=== PATIENT | female | born 1970 | race Two or more races ===

== ENCOUNTER 2024-10-26 09:00 | Outpatient (RCR) | payer OTHER, MEDICAID, SELFPAY ==
[2024-10-12 09:33] VITALS: BP 131/68; PULSE 78; RESP 16; TEMP 36.9; O2SAT 96; BMI 25.2
[2024-10-12] MEDS: FERRIC SOD GLUC INJ 125 MG in SODIUM CHLORIDE 0.9% 100 ML 110 MG IV (09:56)
[2024-10-12 11:06] VITALS: BP 126/62; PULSE 82; RESP 15; TEMP 36.6; O2SAT 97
[2024-10-19 08:56] VITALS: TEMP 36.2; BMI 25.5
[2024-10-19 08:57] VITALS: BP 127/58; PULSE 69; RESP 18; TEMP 36.2; O2SAT 96
[2024-10-19] MEDS: FERRIC SOD GLUC INJ 125 MG in SODIUM CHLORIDE 0.9% 100 ML 110 MG IV (09:07)
[2024-10-19 10:10] VITALS: BP 104/61; PULSE 82; RESP 18; TEMP 36.5; O2SAT 96
[2024-10-26 09:00] VITALS: BP 122/67; PULSE 80; RESP 18; TEMP 36.3; O2SAT 97; BMI 25.2
[2024-10-26] MEDS: FERRIC SOD GLUC INJ 125 MG in SODIUM CHLORIDE 0.9% 100 ML 110 MG IV (09:28)
--- NOTE | 2024-10-26 09:48 | CHAP ---
Visited with patient giving encouragement and prayer.
[2024-10-26 10:38] VITALS: BP 119/74; PULSE 85; RESP 17; TEMP 36.6; O2SAT 100
== END 2024-10-29 23:59 | disposition home or self-care (01) ==
LOC: SFLEX 09:00
PROVIDERS: PCP Internal Medicine; Referring Provider Internal Medicine; Visit Provider Internal Medicine
PROC: (CPT 96365; principal; 2024-10-12 09:00)
DX: D50.9 Iron deficiency anemia, unspecified (principal)
CPT/HCPCS: 96365; 96366; J2916; J7050

== ENCOUNTER → 2024-11-02 | Outpatient (CLI) | payer OTHER, MEDICAID, SELFPAY ==
[2024-11-02] MEDS: FERRIC SOD GLUC INJ 125 MG in SODIUM CHLORIDE 0.9% 100 ML 110 MG IV (09:54)
[2024-11-02 10:05] VITALS: BP 128/71; PULSE 90; RESP 14; TEMP 36.1; O2SAT 95; BMI 25.9
== END | disposition home or self-care (01) ==
PROVIDERS: PCP Internal Medicine; Referring Provider Internal Medicine; Visit Provider Internal Medicine
PROC: (CPT 96365; principal; 2024-11-02 09:00)
DX: D50.9 Iron deficiency anemia, unspecified (principal)
CPT/HCPCS: 96365; J2916; J7050

== ENCOUNTER → 2024-11-14 | Outpatient (CLI) | payer OTHER, MEDICAID, SELFPAY ==
--- NOTE | 2024-11-14 10:30 | XR_ITS ---
Examination: Screening digital mammography, bilateral Computer aided detection 3-D breast Tomosynthesis, bilateral Date and time of exam: November 14, 2024 at 1037 hours Compared to mammograms dating to November 07, 2011 Indication: Screening Technique: Nonmagnified MLO, CC views of the breasts to been obtained, reconstructed from 3-D Tomosynthesis images. R2 computer aided detection program utilized for evaluation of suspicious masses and/or abnormal calcifications. 3-D Tomosynthesis images obtained. Findings: The breasts are heterogeneously dense, which may obscure small masses Benign calcifications. No interval suspicious masses Impression: BI-RADS category II: Benign Findings. Recommend 1 year follow-up mammogram.
--- NOTE | 2024-11-14 10:35 | XR_ITS ---
Examination: Bone densitometry Date and time of exam:November 14, 2024 1050 hours INDICATIONS: Menopause age 44 calcium 2 years, personal history osteopenia Technique: Lumbar spine and hip total bone mineralization values of an calculated. Peak reference and age match control results have been displayed. Findings: Lumbar spine total bone mineralization is0.929 gm/cm2. This is 1.1 standard deviations below peak reference. This is 0.1 standard deviations above age-matched controls. Hip total bone mineralization is 0.766 gm/cm2 This is 1.5 standard deviations below peak reference. This is 0.7 standard deviations below age-matched controls Impression: There is osteopenia based on lumbar spine measurements. There is osteoporosis based on hip measurements Lumbar mineralization is increased 1.9% compared with April 22, 2022 Hip mineralization is decreased 4.2% compared with April 22, 2022
== END | disposition home or self-care (01) ==
PROVIDERS: PCP Internal Medicine; Referring Provider Internal Medicine; Visit Provider Internal Medicine
DX: Z12.31 Encounter for screening mammogram for malignant neoplasm of breast (principal); R92.323 Mammographic fibroglandular density, bilateral breasts; R92.1 Mammographic calcification found on diagnostic imaging of breast; M85.88 Other specified disorders of bone density and structure, other site; M81.0 Age-related osteoporosis without current pathological fracture
CPT/HCPCS: 77063; 77067; 77080

== ENCOUNTER → 2024-12-13 | Outpatient (CLI) | payer MEDICARE, MEDICAID, SELFPAY ==
[2024-12-13 13:42] LABS: Basophils # (Auto) 0.1 Thou/mm3 (0.0-0.2); Basophils % (Auto) 1 % (0-2.5); Eosinophils # (Auto) 0.1 Thou/mm3 (0.0-0.5); Eosinophils % (Auto) 1 % (0-10); Hematocrit 38.7 % (36.0-46.0); Hemoglobin 12.6 g/dL (12.0-16.0); Immature Granulocytes % (Auto) 0 % (0-0); Immature Granulocytes Auto 0.03 Thou/mm3 (0.00-0.00); Lymphocytes # (Auto) 2.5 Thou/mm3 (1.0-4.8); Lymphocytes % (Auto) 26 % (10-50); Mean Corpuscular HGB Conc 32.6 g/dl (31.0-37.0); Mean Corpuscular Hemoglobin 27.6 pg (25.0-35.0); Mean Corpuscular Volume 85 fL (80-100); Monocytes # (Auto) 0.7 Thou/mm3 (0.0-0.8); Monocytes % (Auto) 7 % (0-12); Neutrophils # (Auto) 6.4 Thou/mm3 (1.8-7.7); Neutrophils % (Auto) 65 % (37-80); Nucleated Red Blood Cell % 0 /100 WBC (0); Platelet Count 367 Thou/mm3 (140-440); RDW Standard Deviation 48.5 fL (36.4-46.3); Red Blood Count 4.56 Miln/mm3 (4.00-5.20); White Blood Count 9.7 Thou/mm3 (3.6-11.0)
[2024-12-13 13:44] LABS: Collection Type, Urine Clean Catch
[2024-12-13 14:02] LABS: Ferritin 42 ng/mL (7.3-270.7)
[2024-12-13 14:03] LABS: Alanine Aminotransferase 11 U/L (10-49); Albumin, Serum 4.6 gm/dL (3.5-5.0); Albumin/Globulin Ratio 1.2 (1.2-2.2); Alkaline Phosphatase 96 U/L (46-116); Anion Gap 8 (7-16); Aspartate Amino Transferase 13 U/L (0-34); BUN/Creatinine Ratio 30 Ratio (12-20); Bilirubin,Total 0.2 mg/dL (0.3-1.2); Blood Urea Nitrogen 24 mg/dL (9-23); Calcium 9.6 mg/dL (8.3-10.6); Calcium (Corrected) 9.6 mg/dL (8.5-10.1); Carbon Dioxide 27.6 mMol/L (20.0-31.0); Cardiac Risk Estimate 3.7 RATIO (3.7-5.6); Chloride 104 mMol/L (98-107); Cholesterol 156 mg/dL (132-200); Creatinine (Component) 0.8 mg/dL (0.6-1.3); Globulin 3.7 gm/dL (2.3-3.5); Glucose 86 mg/dL (74-106); HDL Cholesterol 42 mg/dL (40-60); LDL Cholesterol,Calculated 89 mg/dL (0-130); Magnesium 1.5 mg/dL (1.6-2.6); Osmolality,Calculated 282 (275-295); Phosphorous 3.1 mg/dL (2.4-5.1); Potassium 4.4 mMol/L (3.4-5.1); Sodium 140 mMol/L (136-145); Total Protein 8.3 gm/dL (5.7-8.2); Triglycerides 127 mg/dL (30-150); eGFR > 60 See Note
[2024-12-13 16:42] LABS: Bilirubin,Urine Negative (Negative); Blood,Urine Negative (Negative); Clarity,Urine Clear (Clear/Hazy); Color,Urine Lt-Yellow (Lt Yel-Yel); Glucose, Urine Negative (Negative); Ketones,Urine Negative (Negative); Leukocyte Esterase,Urine Negative (Negative); Nitrite,Urine Negative (Negative); PH,Urine 6.5 (5.0-7.0); Protein,Urine 1+ (Neg - Trace); RBC,Urine 1 /hpf (0-3); Specific Gravity,Urine 1.023 (1.001-1.035); Squamous Epithelial Cell,Urine < 1 /hpf (0-5); Urobilinogen,Urine Negative mg/dL (0.0-1.0); WBC,Urine 1 /hpf (0-5)
== END | disposition home or self-care (01) ==
PROVIDERS: PCP Internal Medicine; Referring Provider Internal Medicine; Visit Provider Internal Medicine
DX: I10 Essential (primary) hypertension (principal); E78.5 Hyperlipidemia, unspecified; E11.9 Type 2 diabetes mellitus without complications; D50.9 Iron deficiency anemia, unspecified
CPT/HCPCS: 36415; 80053; 80061; 81001; 82728; 83735; 84100; 84443; 85025

== ENCOUNTER → 2025-02-21 | Outpatient (CLI) | payer MEDICARE, MEDICAID, SELFPAY ==
[2025-02-21 12:34] LABS: Basophils # (Auto) 0.1 Thou/mm3 (0.0-0.2); Basophils % (Auto) 1 % (0-2.5); Eosinophils # (Auto) 0.1 Thou/mm3 (0.0-0.5); Eosinophils % (Auto) 1 % (0-10); Hematocrit 34.6 % (36.0-46.0); Hemoglobin 11.5 g/dL (12.0-16.0); Immature Granulocytes % (Auto) 0 % (0-0); Immature Granulocytes Auto 0.03 Thou/mm3 (0.00-0.00); Lymphocytes # (Auto) 1.7 Thou/mm3 (1.0-4.8); Lymphocytes % (Auto) 18 % (10-50); Mean Corpuscular HGB Conc 33.2 g/dl (31.0-37.0); Mean Corpuscular Hemoglobin 28.3 pg (25.0-35.0); Mean Corpuscular Volume 85 fL (80-100); Monocytes # (Auto) 0.8 Thou/mm3 (0.0-0.8); Monocytes % (Auto) 9 % (0-12); Neutrophils # (Auto) 6.8 Thou/mm3 (1.8-7.7); Neutrophils % (Auto) 71 % (37-80); Nucleated Red Blood Cell % 0 /100 WBC (0); Platelet Count 458 Thou/mm3 (140-440); RDW Standard Deviation 46.7 fL (36.4-46.3); Red Blood Count 4.06 Miln/mm3 (4.00-5.20); White Blood Count 9.5 Thou/mm3 (3.6-11.0)
[2025-02-21 13:08] LABS: Sed Rate (ESR) 52 mm/hr (0-30)
[2025-02-21 14:11] LABS: Alanine Aminotransferase 45 U/L (10-49); Albumin, Serum 4.3 gm/dL (3.5-5.0); Albumin/Globulin Ratio 1.3 (1.2-2.2); Alkaline Phosphatase 126 U/L (46-116); Anion Gap 9 (7-16); Aspartate Amino Transferase 67 U/L (0-34); BUN/Creatinine Ratio 20 Ratio (12-20); Bilirubin,Total 0.4 mg/dL (0.3-1.2); Blood Urea Nitrogen 18 mg/dL (9-23); Calcium 9.9 mg/dL (8.3-10.6); Calcium (Corrected) 9.9 mg/dL (8.5-10.1); Carbon Dioxide 26.5 mMol/L (20.0-31.0); Chloride 106 mMol/L (98-107); Creatinine (Component) 0.9 mg/dL (0.6-1.3); Globulin 3.4 gm/dL (2.3-3.5); Glucose 102 mg/dL (74-106); Osmolality,Calculated 283 (275-295); Potassium 4.5 mMol/L (3.4-5.1); Sodium 141 mMol/L (136-145); Total Protein 7.7 gm/dL (5.7-8.2); eGFR > 60 See Note
[2025-02-21 16:29] LABS: C-Reactive Protein 2.7 mg/dL (0.0-0.9)
[2025-02-27 07:04] LABS: Complement Component C3* 140 mg/dL (83-193); Complement Component C4c* 25 mg/dL (15-57)
== END | disposition home or self-care (01) ==
LOC: COPL 11:24
PROVIDERS: PCP Internal Medicine
DX: D72.829 Elevated white blood cell count, unspecified (principal); D75.839 Thrombocytosis, unspecified; E55.9 Vitamin D deficiency, unspecified; I10 Essential (primary) hypertension; I26.93 Single subsegmental thrombotic pulmonary embolism without acute cor pulmonale; J84.09 Other alveolar and parieto-alveolar conditions; K21.9 Gastro-esophageal reflux disease without esophagitis; M13.0 Polyarthritis, unspecified; M34.1 CR(E)ST syndrome; R59.0 Localized enlarged lymph nodes; R91.1 Solitary pulmonary nodule; Z23 Encounter for immunization; Z79.52 Long term (current) use of systemic steroids
CPT/HCPCS: 36415; 80053; 85025; 85652; 86140; 86160

== ENCOUNTER → 2025-03-27 | Outpatient (CLI) | payer MEDICARE, MEDICAID, SELFPAY ==
[2025-03-27 14:41] LABS: Albumin, Serum 4.5 gm/dL (3.5-5.0); Anion Gap 9 (7-16); BUN/Creatinine Ratio 14 Ratio (12-20); Blood Urea Nitrogen 13 mg/dL (9-23); Calcium 8.9 mg/dL (8.3-10.6); Calcium (Corrected) 8.9 mg/dL (8.5-10.1); Carbon Dioxide 26.4 mMol/L (20.0-31.0); Chloride 103 mMol/L (98-107); Creatinine (Component) 0.9 mg/dL (0.6-1.3); Glucose 120 mg/dL (74-106); Magnesium 1.1 mg/dL (1.6-2.6); Osmolality,Calculated 276 (275-295); Phosphorous 2.4 mg/dL (2.4-5.1); Potassium 4.2 mMol/L (3.4-5.1); Sodium 138 mMol/L (136-145); eGFR > 60 See Note
== END | disposition home or self-care (01) ==
LOC: COPL 13:06
PROVIDERS: PCP Internal Medicine; Referring Provider Internal Medicine; Visit Provider Internal Medicine
DX: I10 Essential (primary) hypertension (principal)
CPT/HCPCS: 36415; 80069; 83735

== ENCOUNTER → 2025-05-12 | Outpatient (CLI) | payer MEDICARE, MEDICAID, SELFPAY ==
[2025-05-12 13:46] LABS: Collection Type, Urine Clean Catch
[2025-05-12 14:13] LABS: Basophils # (Auto) 0.1 Thou/mm3 (0.0-0.2); Basophils % (Auto) 1 % (0-2.5); Eosinophils # (Auto) 0.3 Thou/mm3 (0.0-0.5); Eosinophils % (Auto) 3 % (0-10); Hematocrit 37.1 % (36.0-46.0); Hemoglobin 12.1 g/dL (12.0-16.0); Immature Granulocytes % (Auto) 0 % (0-0); Immature Granulocytes Auto 0.02 Thou/mm3 (0.00-0.00); Lymphocytes # (Auto) 1.7 Thou/mm3 (1.0-4.8); Lymphocytes % (Auto) 21 % (10-50); Mean Corpuscular HGB Conc 32.6 g/dl (31.0-37.0); Mean Corpuscular Hemoglobin 27.6 pg (25.0-35.0); Mean Corpuscular Volume 85 fL (80-100); Monocytes # (Auto) 0.6 Thou/mm3 (0.0-0.8); Monocytes % (Auto) 8 % (0-12); Neutrophils # (Auto) 5.6 Thou/mm3 (1.8-7.7); Neutrophils % (Auto) 67 % (37-80); Nucleated Red Blood Cell % 0 /100 WBC (0); Platelet Count 454 Thou/mm3 (140-440); RDW Standard Deviation 43.4 fL (36.4-46.3); Red Blood Count 4.38 Miln/mm3 (4.00-5.20); White Blood Count 8.3 Thou/mm3 (3.6-11.0)
[2025-05-12 14:18] LABS: Bilirubin,Urine Negative (Negative); Blood,Urine Negative (Negative); Clarity,Urine Clear (Clear/Hazy); Color,Urine Lt-Yellow (Lt Yel-Yel); Glucose, Urine Negative (Negative); Hyaline Casts,Urine < 1 /hpf (0-1); Ketones,Urine Negative (Negative); Leukocyte Esterase,Urine Negative (Negative); Nitrite,Urine Negative (Negative); PH,Urine 6.5 (5.0-7.0); Protein,Urine Trace (Neg - Trace); RBC,Urine 3 /hpf (0-3); Specific Gravity,Urine 1.023 (1.001-1.035); Squamous Epithelial Cell,Urine 1 /hpf (0-5); Urobilinogen,Urine Negative mg/dL (0.0-1.0); WBC,Urine 1 /hpf (0-5)
[2025-05-12 14:44] LABS: Alanine Aminotransferase < 7 U/L (10-49); Albumin, Serum 4.3 gm/dL (3.5-5.0); Albumin/Globulin Ratio 1.3 (1.2-2.2); Alkaline Phosphatase 102 U/L (46-116); Anion Gap 8 (7-16); Aspartate Amino Transferase 16 U/L (0-34); BUN/Creatinine Ratio 19 Ratio (12-20); Bilirubin,Total 0.3 mg/dL (0.3-1.2); Blood Urea Nitrogen 15 mg/dL (9-23); C-Reactive Protein < 0.5 mg/dL (0.0-0.9); Calcium 9.2 mg/dL (8.3-10.6); Calcium (Corrected) 9.2 mg/dL (8.5-10.1); Carbon Dioxide 30.6 mMol/L (20.0-31.0); Chloride 104 mMol/L (98-107); Creatine Kinase 44 U/L (34-171); Creatinine (Component) 0.8 mg/dL (0.6-1.3); Globulin 3.4 gm/dL (2.3-3.5); Glucose 89 mg/dL (74-106); Osmolality,Calculated 284 (275-295); Potassium 4.6 mMol/L (3.4-5.1); Sodium 143 mMol/L (136-145); Total Protein 7.7 gm/dL (5.7-8.2); eGFR > 60 See Note
[2025-05-12 15:35] LABS: Sed Rate (ESR) 14 mm/hr (0-30)
[2025-05-17 13:49] LABS: Sm Antibody <1.0 NEG AI (<1.0 NEGATIVE)
[2025-05-18 06:40] LABS: Aldolase* 3.8 U/L (< OR = 8.1); Sm/RNP Antibody >8.0 POS AI (<1.0 NEGATIVE)
== END | disposition home or self-care (01) ==
PROVIDERS: PCP Internal Medicine
DX: D72.829 Elevated white blood cell count, unspecified (principal); D75.839 Thrombocytosis, unspecified; E55.9 Vitamin D deficiency, unspecified; I10 Essential (primary) hypertension; I26.93 Single subsegmental thrombotic pulmonary embolism without acute cor pulmonale; J84.09 Other alveolar and parieto-alveolar conditions; K21.9 Gastro-esophageal reflux disease without esophagitis; M13.0 Polyarthritis, unspecified; M34.1 CR(E)ST syndrome; R59.0 Localized enlarged lymph nodes; R91.1 Solitary pulmonary nodule; Z23 Encounter for immunization; Z79.52 Long term (current) use of systemic steroids
CPT/HCPCS: 36415; 80053; 81001; 82085; 82550; 85025; 85652; 86140; 86235; 87086

== ENCOUNTER → 2025-07-06 | Outpatient (CLI) | payer MEDICARE, MEDICAID, SELFPAY ==
[2025-07-06 16:04] LABS: Basophils # (Auto) 0.1 Thou/mm3 (0.0-0.2); Basophils % (Auto) 1 % (0-2.5); Eosinophils # (Auto) 0.3 Thou/mm3 (0.0-0.5); Eosinophils % (Auto) 3 % (0-10); Hematocrit 36.3 % (36.0-46.0); Hemoglobin 11.2 g/dL (12.0-16.0); Immature Granulocytes Auto 0.03 Thou/mm3 (0.00-0.00); Lymphocytes # (Auto) 1.8 Thou/mm3 (1.0-4.8); Lymphocytes % (Auto) 22 % (10-50); Mean Corpuscular HGB Conc 30.9 g/dl (31.0-37.0); Mean Corpuscular Hemoglobin 25.7 pg (25.0-35.0); Mean Corpuscular Volume 83 fL (80-100); Monocytes # (Auto) 0.6 Thou/mm3 (0.0-0.8); Monocytes % (Auto) 8 % (0-12); Neutrophils # (Auto) 5.4 Thou/mm3 (1.8-7.7); Neutrophils % (Auto) 66 % (37-80); Nucleated Red Blood Cell # 0.00 Thou/mm3 (0.00-0.00); Nucleated Red Blood Cell % 0 /100 WBC (0); Platelet Count 465 Thou/mm3 (140-440); RDW Standard Deviation 43.8 fL (36.4-46.3); Red Blood Count 4.35 Miln/mm3 (4.00-5.20); White Blood Count 8.2 Thou/mm3 (3.6-11.0)
[2025-07-06 16:19] LABS: B-Type Natriuretic Peptide 58 pg/mL (0-100)
[2025-07-06 16:32] LABS: Alanine Aminotransferase < 7 U/L (10-49); Albumin, Serum 4.2 gm/dL (3.5-5.0); Albumin/Globulin Ratio 1.2 (1.2-2.2); Alkaline Phosphatase 92 U/L (46-116); Anion Gap 10 (7-16); Aspartate Amino Transferase 13 U/L (0-34); BUN/Creatinine Ratio 18 Ratio (12-20); Bilirubin,Total 0.3 mg/dL (0.3-1.2); Blood Urea Nitrogen 21 mg/dL (9-23); Calcium 8.9 mg/dL (8.3-10.6); Calcium (Corrected) 8.9 mg/dL (8.5-10.1); Carbon Dioxide 24.5 mMol/L (20.0-31.0); Chloride 108 mMol/L (98-107); Creatinine (Component) 1.2 mg/dL (0.6-1.3); Globulin 3.4 gm/dL (2.3-3.5); Glucose 112 mg/dL (74-106); Osmolality,Calculated 287 (275-295); Potassium 4.1 mMol/L (3.4-5.1); Sodium 142 mMol/L (136-145); Total Protein 7.6 gm/dL (5.7-8.2); eGFR 53 See Note
== END | disposition home or self-care (01) ==
LOC: COPL 14:09
PROVIDERS: PCP Internal Medicine; Referring Provider Internal Medicine; Visit Provider Internal Medicine
DX: R06.02 Shortness of breath (principal); J84.9 Interstitial pulmonary disease, unspecified; I27.20 Pulmonary hypertension, unspecified
CPT/HCPCS: 36415; 80053; 83880; 85025

== ENCOUNTER → 2025-07-11 | Outpatient (CLI) | payer MEDICARE, MEDICAID, SELFPAY ==
[2025-07-11 15:26] LABS: Collection Type, Urine Clean Catch
[2025-07-11 16:38] LABS: Basophils # (Auto) 0.1 Thou/mm3 (0.0-0.2); Basophils % (Auto) 1 % (0-2.5); Eosinophils # (Auto) 0.3 Thou/mm3 (0.0-0.5); Eosinophils % (Auto) 2 % (0-10); Hematocrit 37.3 % (36.0-46.0); Hemoglobin 11.6 g/dL (12.0-16.0); Immature Granulocytes Auto 0.03 Thou/mm3 (0.00-0.00); Lymphocytes # (Auto) 1.6 Thou/mm3 (1.0-4.8); Lymphocytes % (Auto) 14 % (10-50); Mean Corpuscular HGB Conc 31.1 g/dl (31.0-37.0); Mean Corpuscular Hemoglobin 26.1 pg (25.0-35.0); Mean Corpuscular Volume 84 fL (80-100); Monocytes # (Auto) 1.0 Thou/mm3 (0.0-0.8); Monocytes % (Auto) 9 % (0-12); Neutrophils # (Auto) 8.6 Thou/mm3 (1.8-7.7); Neutrophils % (Auto) 74 % (37-80); Nucleated Red Blood Cell # 0.00 Thou/mm3 (0.00-0.00); Nucleated Red Blood Cell % 0 /100 WBC (0); Platelet Count 352 Thou/mm3 (140-440); RDW Standard Deviation 44.5 fL (36.4-46.3); Red Blood Count 4.45 Miln/mm3 (4.00-5.20); White Blood Count 11.5 Thou/mm3 (3.6-11.0)
[2025-07-11 16:52] LABS: Bilirubin,Urine Negative (Negative); Blood,Urine Trace (Negative); Clarity,Urine Clear (Clear/Hazy); Color,Urine Yellow (Lt Yel-Yel); Glucose, Urine Negative (Negative); Hyaline Casts,Urine < 1 /hpf (0-1); Ketones,Urine Negative (Negative); Leukocyte Esterase,Urine Negative (Negative); Nitrite,Urine Negative (Negative); PH,Urine 6.0 (5.0-7.0); Protein,Urine 1+ (Neg - Trace); RBC,Urine 8 /hpf (0-3); Specific Gravity,Urine 1.029 (1.001-1.035); Squamous Epithelial Cell,Urine 1 /hpf (0-5); Urobilinogen,Urine Negative mg/dL (0.0-1.0); WBC,Urine 4 /hpf (0-5)
[2025-07-11 17:45] LABS: Sed Rate (ESR) 65 mm/hr (0-30)
[2025-07-11 17:55] LABS: Alanine Aminotransferase 8 U/L (10-49); Albumin, Serum 4.2 gm/dL (3.5-5.0); Albumin/Globulin Ratio 1.2 (1.2-2.2); Alkaline Phosphatase 101 U/L (46-116); Anion Gap 12 (7-16); Aspartate Amino Transferase 23 U/L (0-34); BUN/Creatinine Ratio 21 Ratio (12-20); Bilirubin,Total 0.3 mg/dL (0.3-1.2); Blood Urea Nitrogen 21 mg/dL (9-23); C-Reactive Protein 1.0 mg/dL (0.0-0.9); Calcium 9.1 mg/dL (8.3-10.6); Calcium (Corrected) 9.1 mg/dL (8.5-10.1); Carbon Dioxide 21.8 mMol/L (20.0-31.0); Chloride 107 mMol/L (98-107); Creatinine (Component) 1.0 mg/dL (0.6-1.3); Globulin 3.4 gm/dL (2.3-3.5); Glucose 88 mg/dL (74-106); Osmolality,Calculated 283 (275-295); Potassium 5.8 mMol/L (3.4-5.1); Sodium 141 mMol/L (136-145); Total Protein 7.6 gm/dL (5.7-8.2); eGFR > 60 See Note
== END | disposition home or self-care (01) ==
LOC: COPL 14:24
PROVIDERS: PCP Internal Medicine; Referring Provider Internal Medicine; Visit Provider Internal Medicine
DX: D72.829 Elevated white blood cell count, unspecified (principal); D75.839 Thrombocytosis, unspecified; E55.9 Vitamin D deficiency, unspecified; I10 Essential (primary) hypertension; I26.93 Single subsegmental thrombotic pulmonary embolism without acute cor pulmonale; J84.09 Other alveolar and parieto-alveolar conditions; K21.9 Gastro-esophageal reflux disease without esophagitis; M13.0 Polyarthritis, unspecified; M34.1 CR(E)ST syndrome; R59.0 Localized enlarged lymph nodes; R91.1 Solitary pulmonary nodule; Z23 Encounter for immunization; Z79.52 Long term (current) use of systemic steroids; Z79.899 Other long term (current) drug therapy
CPT/HCPCS: 36415; 80053; 81001; 82085; 82550; 82552; 85025; 85652; 86140; 87086

== ENCOUNTER → 2025-07-20 | Outpatient (CLI) | payer MEDICARE, MEDICAID, SELFPAY ==
[2025-07-20 15:20] LABS: Misc Send Out* See Sep Rpt
[2025-07-20 16:33] LABS: Albumin, Serum 4.3 gm/dL (3.5-5.0); Anion Gap 11 (7-16); BUN/Creatinine Ratio 21 Ratio (12-20); Blood Urea Nitrogen 21 mg/dL (9-23); Calcium 9.5 mg/dL (8.3-10.6); Calcium (Corrected) 9.5 mg/dL (8.5-10.1); Carbon Dioxide 25.0 mMol/L (20.0-31.0); Chloride 103 mMol/L (98-107); Creatinine (Component) 1.0 mg/dL (0.6-1.3); Glucose 86 mg/dL (74-106); Osmolality,Calculated 279 (275-295); Phosphorous 3.4 mg/dL (2.4-5.1); Potassium 4.5 mMol/L (3.4-5.1); Sodium 139 mMol/L (136-145); eGFR > 60 See Note
[2025-07-26 06:31] LABS: Aldolase* 3.1 U/L (< OR = 8.1)
== END | disposition home or self-care (01) ==
LOC: COPL 15:07
PROVIDERS: PCP Internal Medicine; Referring Provider Internal Medicine; Visit Provider Internal Medicine
DX: I12.9 Hypertensive chronic kidney disease with stage 1 through stage 4 chronic kidney disease, or unspecified chronic kidney disease (principal); N18.9 Chronic kidney disease, unspecified; D72.829 Elevated white blood cell count, unspecified; D75.839 Thrombocytosis, unspecified; E55.9 Vitamin D deficiency, unspecified; I26.93 Single subsegmental thrombotic pulmonary embolism without acute cor pulmonale; J84.09 Other alveolar and parieto-alveolar conditions; K21.9 Gastro-esophageal reflux disease without esophagitis; M13.0 Polyarthritis, unspecified; M34.1 CR(E)ST syndrome; R59.0 Localized enlarged lymph nodes; R91.1 Solitary pulmonary nodule; Z23 Encounter for immunization; Z79.52 Long term (current) use of systemic steroids; Z79.899 Other long term (current) drug therapy
CPT/HCPCS: 36415; 80069; 82085

== ENCOUNTER → 2025-08-10 | Outpatient (CLI) | payer MEDICARE, MEDICAID, SELFPAY ==
--- NOTE | 2025-08-10 14:25 | XR_ITS ---
Examination: PA lateral chest 2 views TECHNIQUE: Upright PA lateral chest 2 views Date and time: August 10, 2025 1445 hours, comparison December 05, 2023 INDICATIONS: Coughing shortness of breath beginning today. FINDINGS: Interstitial disease at the lung bases again noted consistent with pulmonary fibrosis Please see the CT chest report May 11, 2021 Mild prominence left ventricle Prominent osteopenia IMPRESSION: Significant bilateral pulmonary fibrosis
== END | disposition home or self-care (01) ==
PROVIDERS: PCP Internal Medicine
DX: J84.10 Pulmonary fibrosis, unspecified (principal)
CPT/HCPCS: 71046

== ENCOUNTER 2025-08-11 17:48 | Emergency (ER) | payer MEDICARE, MEDICAID, SELFPAY ==
[2025-08-11 17:49] VITALS: BMI 23.0
[2025-08-11 19:08] VITALS: BP 105/59; PULSE 87; RESP 16; TEMP 36.7; O2SAT 96
--- NOTE | 2025-08-11 19:20 | EDRME_ITS ---
Rapid Medical Screening Exam [facility] Arrival date/time: 08/11/25 17:48 54F with history of HTN presents to ED with several days of ab pain/cramping and some non-bloody diarrhea. Separately, patient has had 2 weeks of cough and confirmed with PNA on CXR and was given levofloxacin, which she hasn't started yet. Chief Complaint: Abdominal Pain Time Seen by Provider: 08/11/25 19:32 Vital signs: Vital Signs Temperature 98.1 F 08/11/25 19:08 Pulse Rate 87 08/11/25 19:08 Respiratory Rate 16 08/11/25 19:08 Blood Pressure 105/59 L 08/11/25 19:08 Pulse Oximetry (%) 96 08/11/25 19:08 Oxygen Delivery Method Room Air 08/11/25 19:08
[2025-08-11 20:05] LABS: Lactate (Lactic Acid) 1.7 mMol/L (0.4-2.0)
[2025-08-11 20:08] LABS: Basophils # (Auto) 0.1 Thou/mm3 (0.0-0.2); Basophils % (Auto) 1 % (0-2.5); Eosinophils # (Auto) 0.1 Thou/mm3 (0.0-0.5); Eosinophils % (Auto) 1 % (0-10); Hematocrit 34.9 % (36.0-46.0); Hemoglobin 10.8 g/dL (12.0-16.0); Immature Granulocytes Auto 0.03 Thou/mm3 (0.00-0.00); Lymphocytes # (Auto) 2.1 Thou/mm3 (1.0-4.8); Lymphocytes % (Auto) 18 % (10-50); Mean Corpuscular HGB Conc 30.9 g/dl (31.0-37.0); Mean Corpuscular Hemoglobin 25.5 pg (25.0-35.0); Mean Corpuscular Volume 82 fL (80-100); Monocytes # (Auto) 1.0 Thou/mm3 (0.0-0.8); Monocytes % (Auto) 9 % (0-12); Neutrophils # (Auto) 8.4 Thou/mm3 (1.8-7.7); Neutrophils % (Auto) 72 % (37-80); Nucleated Red Blood Cell # 0.00 Thou/mm3 (0.00-0.00); Nucleated Red Blood Cell % 0 /100 WBC (0); Platelet Count 334 Thou/mm3 (140-440); RDW Standard Deviation 49.6 fL (36.4-46.3); Red Blood Count 4.24 Miln/mm3 (4.00-5.20); White Blood Count 11.7 Thou/mm3 (3.6-11.0)
[2025-08-11 20:23] LABS: Amphetamine/Methamp Scrn,U Negative (Negative); Barbiturate Screen,Urine Negative (Negative); Benzodiazepines Screen,Urine Negative (Negative); Benzoylecgonine Screen, Ur Negative (Negative); Fentanyl Screen,Urine Negative (Negative); Opiate Screen,Urine Negative (Negative); THC Screen,Urine Negative (Negative)
[2025-08-11 20:38] LABS: Alanine Aminotransferase 36 U/L (10-49); Albumin, Serum 4.5 gm/dL (3.5-5.0); Albumin/Globulin Ratio 1.4 (1.2-2.2); Alkaline Phosphatase 101 U/L (46-116); Anion Gap 11 (7-16); Aspartate Amino Transferase 37 U/L (0-34); BUN/Creatinine Ratio 18 Ratio (12-20); Bilirubin,Total 0.5 mg/dL (0.3-1.2); Blood Urea Nitrogen 20 mg/dL (9-23); Calcium 9.2 mg/dL (8.3-10.6); Calcium (Corrected) 9.2 mg/dL (8.5-10.1); Carbon Dioxide 21.2 mMol/L (20.0-31.0); Chloride 109 mMol/L (98-107); Creatinine (Component) 1.1 mg/dL (0.6-1.3); Estimated Creatinine Clearance 47.2 mL/min (>60); Globulin 3.2 gm/dL (2.3-3.5); Glucose 68 mg/dL (74-106); Osmolality,Calculated 281 (275-295); Potassium 4.0 mMol/L (3.4-5.1); Procalcitonin 0.07 ng/ml (0.0-0.49); Sodium 141 mMol/L (136-145); Total Protein 7.7 gm/dL (5.7-8.2); eGFR 59 See Note
[2025-08-11 21:16] VITALS: BP 111/71; PULSE 77; RESP 16; TEMP 36.7; O2SAT 96
--- NOTE | 2025-08-11 21:24 | PD.EDNV ---
Nausea/Vomit./Diarrhea-RME/HPI General Chief complaint: Abdominal Pain Stated complaint: STOMACH CRAMPS AND DIARRHEA Time Seen by Provider: 08/11/25 19:32 Arrival date/time: 08/11/25 17:48 RME / HPI RME / HPI Narrative: 54F with history of HTN presents to ED with for evaluation regarding abdominal cramping and non-bloody diarrhea. This been going for the last 3 days. At least 4-5 times loose stools daily. Separately, patient has had 2 weeks of cough and confirmed with PNA on CXR and was given levofloxacin, which she hasn't started yet. She will pick up worker the Levaquin tomorrow morning. She denies any fever. Related Data Home Medications ?Medication ?Instructions ?Recorded ?Confirmed benazepril 20 mg tablet (Lotensin) 20 mg PO QDAY #0 tabs 03/22/15 10/12/24 nifedipine 60 mg tablet,extended 60 mg PO QDAY #0 tabs 11/25/16 10/12/24 release 24 hr (Procardia XL) metoprolol succinate 50 mg 50 mg PO QDAY hypertension 12/06/23 10/12/24 tablet,extended release 24 hr sildenafil (pulm.hypertension) 20 40 mg PO BID 12/06/23 10/12/24 mg tablet benazepril 5 mg tablet 5 mg QDAY 10/12/24 10/12/24 cetirizine 10 mg tablet 10 mg PO QDAY 10/12/24 10/12/24 hydrocodone 10 mg-acetaminophen 10 - 325 tab PO BID PRN Pain 10/12/24 10/12/24 325 mg tablet magnesium oxide 400 mg (241.3 mg 400 mg PO TID 10/12/24 10/12/24 magnesium) tablet Previous Rx's ?Medication ?Instructions ?Recorded calcium carbonate 600 mg PO BID #60 tabs 12/08/23 Allergies Allergy/AdvReac Type Severity Reaction Status Date / Time aspirin Allergy Severe SWELLING Verified 08/11/25 17:49 TO FACE codeine Allergy Severe RASH Verified 08/11/25 17:49 Penicillins Allergy Severe RASH,SWELL Verified 08/11/25 17:49 UP, HIVES Sulfa (Sulfonamide Allergy Diarrhea Verified 08/11/25 17:49 Antibiotics) Review of Systems Review of Systems Narrative Review of Systems: Review of system reviewed and within normal limits except mentioned in HPI ED Exam Narrative Physical exam: VITAL SIGNS: Reviewed. GENERAL APPEARANCE: Alert and interactive, follows commands, no acute distress, HEAD AND FACE: Non-traumatic. ENT: PERRL, pink conjunctivitis, eyelid no trauma, Mucous membrane moist. NECK: Supple, nontender, no nuchal rigidity. CHEST: No tenderness, no crepitus, no paradoxical movement, no retractions. LUNGS: Clear, well ventilated, symmetric, no rales, no wheezing, no ronchi, no stridor, good breath sounds bilaterally. HEART: Regular rate, regular rhythm, no murmur, no gallops. ABDOMEN: Soft, positive bowel sounds, nondistended, no guarding, nontender, no rebound, no masses, RECTAL: Deferred. GENITAL: Deferred. NEUROLOGICAL: Gross motor function intact sensory function intact, Appropriate for age. MUSCULOSKELETAL: low back nontender, full range of motion. EXTREMITIES: Nontender, full range of motion. SKIN: Color pink, dry, no rash, no lacerations, no abrasions, no contusions. LYMPHATICS: Deferred. Course Quality Measures none Orders Category Date Time Status CBC Stat Lab 08/11/25 19:45 Completed CMP [Comprehensive Metabolic Panel] Stat Lab 08/11/25 19:45 Completed Drug Screen,Urine Stat Lab 08/11/25 19:53 Completed Lactate (Lactic Acid) Stat Lab 08/11/25 19:45 Completed Procalcitonin Stat Lab 08/11/25 19:45 Completed Urinalysis, C/S if Indicated Stat Lab 08/11/25 19:53 Received HYDROcodone/APAP 10/325 [Evans 10/325] Med 08/11/25 21:21 Discontinued 1 tab PO X1 ONE Levofloxacin [Levaquin] Med 08/11/25 21:21 Discontinued 500 mg PO X1 ONE Vital Signs Vital signs: Vital Signs Temperature 98.1 F 08/11/25 19:08 Pulse Rate 87 08/11/25 19:08 Respiratory Rate 16 08/11/25 19:08 Blood Pressure 105/59 L 08/11/25 19:08 Pulse Oximetry (%) 96 08/11/25 19:08 Oxygen Delivery Method Room Air 08/11/25 19:08 Nausea/Vomiting/Diarrhea MDM Narrative MDM Narrative:: 54F with history of HTN presents to ED with for evaluation regarding abdominal cramping and non-bloody diarrhea. This been going for the last 3 days. At least 4-5 times loose stools daily. Separately, patient has had 2 weeks of cough and confirmed with PNA on CXR and was given levofloxacin, which she hasn't started yet. She will pick up worker the Levaquin tomorrow morning. She denies any fever. Patient stable to workup. She is benign, no metabolic or infectious process noted. Unable to give us more urine. Patient is having gastroenteritis. I was planning to give antibiotic however patient is already prescribed Levaquin by her greenhouse instructor today. She will start taking it tomorrow. Patient will receive a dose of Levaquin here. Further imaging is not needed at this time. Patient abdomen is soft and nontender on deep palpation. Patient data External records reviewed:: None Clinical information provided by:: patient Social determinants that could affect healthcare access:: none Patient has the following chronic illnesses:: None How is presenting disease/condition affected by chronic disease/condition?: no chronic disease Evaluation data The following diagnostics were reviewed and interpreted by me:: lab results and radiology exam(s) Lab and/or radiology exams considered but not ordered:: None Interpretation Summary: See results MDM Medications / Prescriptions Medications / Prescriptions considered but not ordered:: None Medication administrations:: Medication Administration History Discontinued Medications Hydrocodone Bitart/Acetaminophen (Hydrocodone/Apap 10/325 Tab) 1 tab PO X1 ONE Stop: 08/11/25 21:22 Levofloxacin (Levofloxacin 250 Mg Tablet) 500 mg PO X1 ONE Stop: 08/11/25 21:22 Evans and Levaquin Consultations Consultation(s) initiated? (list below): No Diagnosis Nausea Differential Diagnosis: traveler's diarrhea, gastroenteritis and dehydration Most likely diagnosis given after review of the tests above:: Gastroenteritis, pneumonia Admission Indicated Admission indicated?: not indicated Admission Request Was there a request for admission?: No Disposition Plan Disposition Plan: Discharge Discharge Attestation Discharge Attestation: The patient was given an opportunity to ask questions and understood the discharge instructions. Discharge instructions specifically effects, indications for sooner follow up or return to the emergency department, and the expected course of current diagnosis. Patient condition: Stable Discharge Plan Plan Patient Disposition: HOME (Self Care) Discharge Disposition comment: Stable Prescriptions/Referrals Prescriptions/Med Rec: No Action benazepril [Lotensin] 20 MG tablet 20 mg PO QDAY Qty: 0 nifedipine [Procardia XL] 60 MG/BOTTLE tablet extended release 24 hr 60 mg PO QDAY Qty: 0 metoprolol succinate 50 mg tablet extended release 24 hr 50 mg PO QDAY Patient Comments: TAKE 1 TABLET BY MOUTH TWICE A DAY sildenafil (pulm.hypertension) 20 mg tablet 40 mg PO BID calcium carbonate 600 mg calcium (1,500 mg) Tablet 600 mg PO BID Qty: 60 0RF cetirizine 10 mg tablet 10 mg PO QDAY Patient Comments: TAKE 1 TABLET BY MOUTH EVERY DAY benazepril 5 mg tablet 5 mg QDAY Patient Comments: TAKE 1 TABLET BY MOUTH EVERY DAY hydrocodone-acetaminophen 10-325 mg tablet 10 - 325 tab PO BID PRN (Reason: Pain) Patient Comments: TAKE 1 TABLET BY MOUTH TWICE A DAY NEEDED FOR PAIN magnesium oxide 400 mg (241.3 mg magnesium) tablet 400 mg PO TID Patient Comments: TAKE 1 TABLET BY MOUTH THREE TIMES A DAY Referrals: Juany Cohen MD [Primary Care Provider, Nephrology] - In 1 week Problem List Clinical Impression: Gastroenteritis, Pneumonia Patient/Caregiver Discharge Instructions Discharge Activity: activity as tolerated Education Materials: Treating Pneumonia Additional Instructions: Thank you for the opportunity for serving you today. You are stable for discharged . You are advised to: Follow-up with your PCP in 1 to 2 days Return to ED for worsening of symptoms Increase oral fluids Take medication as prescribed by your greenhouse instructor today(Brian) Print Language: Upper Sorbian Stand Alone Forms: [facility] Info., Patient Portal Info Letter
[2025-08-11] MEDS: LEVOFLOXACIN 250 MG TABLET 500 MG PO (21:46)
== END 2025-08-11 21:49 | disposition home or self-care (01) ==
PROVIDERS: Physician Assistant; Emergency Provider Emergency Medicine; PCP Internal Medicine
DX: K52.9 Noninfective gastroenteritis and colitis, unspecified (principal); J18.9 Pneumonia, unspecified organism
CPT/HCPCS: 36415; 80053; 80307; 81001; 83605; 84145; 85025; 99283; A9270

== ENCOUNTER → 2025-08-29 | Outpatient (CLI) | payer MEDICARE, MEDICAID, SELFPAY ==
--- NOTE | 2025-08-29 | XR_ITS ---
Examination: PA lateral chest 2 views TECHNIQUE: Upright PA lateral chest 2 views Date and time: August 29, 2025, 1235 hours, comparison August 10, 2025 INDICATIONS: Shortness of breath coughing beginning one month ago. FINDINGS: Bilateral abnormal interstitial disease consistent with pulmonary fibrosis Normal heart size Prominent osteopenia IMPRESSION: Severe bilateral pulmonary fibrosis
== END | disposition home or self-care (01) ==
LOC: CDIM 11:29
PROVIDERS: PCP Internal Medicine; Referring Provider Internal Medicine; Visit Provider Internal Medicine
DX: J84.10 Pulmonary fibrosis, unspecified (principal)
CPT/HCPCS: 71046

== ENCOUNTER 2025-08-30 21:19 | Emergency (ER) | payer MEDICARE, MEDICAID, SELFPAY ==
[2025-08-30 21:20] VITALS: BMI 23.0
[2025-08-30 22:20] VITALS: BP 135/79; PULSE 100; RESP 18; TEMP 36.4; O2SAT 99
--- NOTE | 2025-08-30 22:25 | XR_ITS ---
Examination: CT brain head without contrast. 2-D sagittal coronal reconstructions Date and time of exam:August 30, 2025, 11:59 PM Indications: Headaches with nausea beginning 2 weeks ago CTDI: vol (mGy):44.6 DLP: (mGycm):838 Technique: Multiple CT axial sections of the brain have been obtained, 5 mm slice thickness. Contrast has not been administered. 2-D sagittal, coronal reconstructions have been obtained Low dose protocols were performed. One or more of the following dose reduction techniques were used; automated exposure control, adjustment of the mA and/or KV according to patient size, use of iterative reconstruction technique. Findings: No significant ventricular enlargement. Intra-axial or extra-axial hemorrhage density is not seen. No mass effect or midline shift Basal cisterns are not remarkable. Fourth ventricle is midline. Cranial vault intact. Impression: Negative for acute hemorrhage, mass effect or midline shift
--- NOTE | 2025-08-30 22:49 | EDNOTE_ITS ---
ED Headache RME/HPI General Chief Complaint: Headache Stated Complaint: HEADACHE X2 WEEKS Time Seen by Provider: 08/30/25 22:25 Arrival date/time: 08/30/25 21:19 54F with history of HTN presents to ED with 2 weeks of POSADAS and some intermittent cough and congestion. Ibuprofen helps. Limitations: no limitations Related Data Home Medications ?Medication ?Instructions ?Recorded ?Confirmed benazepril 20 mg tablet (Lotensin) 20 mg PO QDAY #0 ta bs 03/22/15 10/12/24 nifedipine 60 mg tablet,extended 60 mg PO QDAY #0 tabs 11/25/16 10/12/24 release 24 hr (Procardia XL) metoprolol succinate 50 mg 50 mg PO QDAY hypertension 12/06/23 10/12/24 tablet,extended release 24 hr sildenafil (pulm.hypertension) 20 40 mg PO BID 4 10/12/24 mg tablet benazepril 5 mg tablet 5 mg QDAY 10/12/24 10/12/24 cetirizine 10 mg tablet 10 mg PO QDAY 10/12/2410/12 hydrocodone 10 mg-acetaminophen 10 - 325 tab PO BID AL N Pain 10/12/24 10/12/24 325 mg tablet magnesium oxide 400 mg (241.3 mg 400 mg PO TID 10/12/24 magnesium) tablet Previous Rx's ?Medication ?Instructions ?Recorded calcium carbonate 600 mg PO BID #60 tabs 12/08 rizatriptan 10 mg disintegrating See Rx Instructions P O .COMPLEX 08/31/25 tablet (Maxalt-CHIEF MECHANICAL OFFICER) #10 tabs Allergies Allergy/AdvReac Type Severity Reaction Status Date / Time aspirin Allergy Severe SWELLING Verified 08/11/25 17:49 TO FACE codeine Allergy Severe RASH Verified 08/11/25 17:49 Penicillins Allergy Severe RASH,SWELL Verified 08/11/25 17:49 UP, HIVES Sulfa (Sulfonamide Allergy Diarrhea Verified 08/11/25 17:49 Antibiotics) Review of Systems Review of Systems Systems Reviewed: All systems reviewed, normal except as documented Constitutional Constitutional: Reports as per HPI and Reports headache(s) ENT Ears, Nose, Mouth, and Throat: Reports as per HPI, Reports headache(s) and Reports nasal congestion Respiratory Respiratory: Reports as per HPI and Reports cough Neurologic Neurologic: Reports headache(s) Past Medical History Past Medical History NEUROLOGIC: Negative Neurological Disorders or Seizures CARDIAC: Positive Cardiac Disorders and Hypertension; Negative Hypercholesterolemia or Congestive Heart Failure RESPIRATORY: Positive Pneumonia and Pulmonary Fibrosis; Negative Chronic Obstructive Pulmonary Disease (COPD) GASTROINTESTINAL: Positive Gastrointestinal Disorders and Gastroesophageal Reflux Disease GENITOURINARY: Negative Genitourinary Disorders or Renal Disease REPRODUCTIVE: Positive Previous Pregnancies MUSCULOSKELETAL: Positive Musculoskeletal Disorders and Arthritis ENDOCRINE: Negative Endocrine Disorders, Diabetes Mellitus Type 1 or Diabetes Mellitus Type 2 HEMATOLOGIC: Positive Blood Disorders and Anemia OTHER HISTORY: Positive Hospitalization, Autoimmune Disease (scleroderma), Chemotherapy and Chicken Pox; Negative Blood Transfusions, Blood Transfusion Reaction, Anesthesia Reactions, Measles, Mumps or Cancer Family History FAMILY HISTORY: Positive Family Cardiac Disorders (mother CHF) and Family Surgery; Negative Family Psychiatric Problems, Family Respiratory Disorders, Family Gastrointestinal Problems, Family Cancer or Family Anesthesia Reaction Surgical History SURGICAL: Positive Abdominal Surgery and Amputation (left toes (all), left index) Social History SMOKING STATUS: Never smoker ED Exam General Limitations: Present no limitations General appearance: Present alert and in no apparent distress Head Head exam: Present atraumatic Eye Eye exam: Present normal appearance, PERRL and EOMI Neck Neck exam: Present normal inspection, full ROM and trachea midline Chest Chest inspection: Present normal inspection and symmetric chest wall rise Neurological Exam Neurological exam: Present alert and oriented X3 Psychiatric Psychiatric exam: Present normal affect and normal mood Skin Skin exam: Present warm, dry, intact and normal color Course Quality Measures none Orders Category Date Time Status CT head/brain wo con Stat Exams 08/30/25 22:25 Taken Metoclopramide [Reglan] Med 08/30/25 22:25 Discontinued 10 mg PO X1 ONE SUMAtriptan INJ [Imitrex Inj] Med 08/30/25 22:25 Discontinued 6 mg SC X1 ONE Vital Signs Vital signs: Vital Signs Temperature 97.6 F 08/30/25 22:20 Pulse Rate 100 08/30/25 22:20 Respiratory Rate 18 08/30/25 22:20 Blood Pressure 135/79 H 08/30/25 22:20 Pulse Oximetry (%) 99 08/30/25 22:20 Oxygen Delivery Method Room Air 08/30/25 22:20 O2 at 99% on RA and WNLs Headache MDM Narrative MDM Narrative:: 54F with history of HTN presents to ED with 2 weeks of POSADAS and some intermittent cough and congestion. Ibuprofen helps. Physical exam reveals normal pupil response and EOM. Normal WOB. Speech normal. Gait normal. Patient is afebrile, calm, and alert. Migraine meds relieved symptoms. Telerad CT unremarkable. Patient data External records reviewed:: [facility] previous records Clinical information provided by:: patient Social determinants that could affect healthcare access:: none Patient has the following chronic illnesses:: HTN How is presenting disease/condition affected by chronic disease/condition?: exacerbated by Evaluation data The following diagnostics were reviewed and interpreted by me:: radiology exam(s) Lab and/or radiology exams considered but not ordered:: ordered Interpretation Summary: above Medications / Prescriptions Medications or Prescriptions considered but not ordered:: ordered Medication administrations:: Medication Administration History Discontinued Medications Metoclopramide HCl (Metoclopramide 5 Mg Tablet) 10 mg PO X1 ONE Stop: 08/30/25 22:26 Last Admin: 08/30/25 23:14 Dose: 10 mg Documented By: CHANTELL Sumatriptan Succinate (Sumatriptan Inj 6 Mg/0.5 Ml Vial) 6 mg SC X1 ONE Stop: 08/30/25 22:26 Last Admin: 08/30/25 23:13 Dose: 6 mg Documented By: CHANTELL above Consultations Consultation(s) initiated? (list below): No Diagnosis Differential diagnosis headache: migraine, tension headache, subarachnoid hemorrhage, headache, meningitis, sinusitis and postconcussion syndrome Most likely diagnosis given after review of the tests above:: migraine Admission Indicated Admission indicated?: not indicated Admission Request Was there a request for admission?: No Disposition Plan Disposition Plan: Discharge Discharge Attestation Discharge Attestation: The patient and all family members were given an opportunity to ask questions and understood the discharge instructions. Discharge instructions specifically effects, indications for sooner follow up or return to the emergency department, and the expected course of current diagnosis. Patient condition: Stable Discharge Plan Plan Patient Disposition: HOME (Self Care) Discharge Disposition comment: Stable Prescriptions/Referrals Prescriptions/Med Rec: New rizatriptan [Maxalt-CHIEF MECHANICAL OFFICER] 10 mg tablet,disintegrating See Rx Instructions .ROUTE .COMPLEX Qty: 10 0RF Rx Instructions: take 1 tab at onset of headache; if no relief may repeat 1 tab after at least 2 hrs; max = 3 tabs/24 hr No Action benazepril [Lotensin] 20 MG tablet 20 mg PO QDAY Qty: 0 nifedipine [Procardia XL] 60 MG/BOTTLE tablet extended release 24 hr 60 mg PO QDAY Qty: 0 metoprolol succinate 50 mg tablet extended release 24 hr 50 mg PO QDAY Patient Comments: TAKE 1 TABLET BY MOUTH TWICE A DAY sildenafil (pulm.hypertension) 20 mg tablet 40 mg PO BID calcium carbonate 600 mg calcium (1,500 mg) Tablet 600 mg PO BID Qty: 60 0RF cetirizine 10 mg tablet 10 mg PO QDAY Patient Comments: TAKE 1 TABLET BY MOUTH EVERY DAY benazepril 5 mg tablet 5 mg QDAY Patient Comments: TAKE 1 TABLET BY MOUTH EVERY DAY hydrocodone-acetaminophen 10-325 mg tablet 10 - 325 tab PO BID PRN (Reason: Pain) Patient Comments: TAKE 1 TABLET BY MOUTH TWICE A DAY NEEDED FOR PAIN magnesium oxide 400 mg (241.3 mg magnesium) tablet 400 mg PO TID Patient Comments: TAKE 1 TABLET BY MOUTH THREE TIMES A DAY Referrals: Juany Cohen MD [Primary Care Provider, Nephrology] - In 1 week Problem List Clinical Impression: Migraine Patient/Caregiver Discharge Instructions Education Materials: ED Headache, Migraine, Classic Additional Instructions: Please follow-up with PCP within 24-48 hours and return immediately if symptoms worsen. Print Language: Trinidadian Stand Alone Forms: Patient Portal Info Letter WALE/FLORINA Supervising Physician WALE/FLORINA Supervising Physician: Dr. García
[2025-08-30] MEDS: SUMAtriptan INJ 6 MG/0.5 ML VIAL SC (23:13)
[2025-08-30] MEDS: METOCLOPRAMIDE 5 MG TABLET 10 MG PO (23:14)
--- NOTE | 2025-08-31 00:36 | PRELIM_ITS ---
CT scan of the head without intravenous contrast (axial sections with sagittal and coronal reformats). August 30, 2025 2359 hours Clinical History: POSADAS 2 weeks No prior study is available for comparison. Findings: No evidence of intracranial hemorrhage, mass effect or midline shift. The ventricles and CSF spaces are unremarkable. The calvarium is unremarkable. The mastoid air cells and the visualized paranasal sinuses are clear. Impression: No evidence of intracranial hemorrhage, mass effect or midline shift. Report Electronically Signed By: Caleb Sutton 08/31/2025 12:35:45 AM [EST]
== END 2025-08-31 00:47 | disposition home or self-care (01) ==
PROVIDERS: Emergency Provider Emergency Medicine; PCP Internal Medicine
DX: G43.909 Migraine, unspecified, not intractable, without status migrainosus (principal); I10 Essential (primary) hypertension; Z89.422 Acquired absence of other left toe(s); Z88.5 Allergy status to narcotic agent; Z88.6 Allergy status to analgesic agent
CPT/HCPCS: 70450; 96372; 99283; J3030; A9270

== ENCOUNTER 2025-11-02 22:46 | Inpatient (IN) | payer MEDICARE, MEDICAID, SELFPAY ==
[2025-11-02 22:57] VITALS: PULSE 138; RESP 21; BMI 23.0
[2025-11-02 22:58] VITALS: BP 117/70; PULSE 130; RESP 18; TEMP 37.5; O2SAT 89
[2025-11-02 23:00] VITALS: BMI 23.0
--- NOTE | 2025-11-02 23:30 | EKG_ITS ---
[facility] Test Date: 2025-11-03 Pat Name: LISANDRO WELLINGTON Department: Room: - Gender: Female Para Professional: : 1970 Requested By: Keegan Lui Order Number: [id number] Reading MD: Keegan Lui Measurements Intervals [place] Rate: 120 P: 64 RI: 154 QRS: 20 QRSD: 90 T: 62 QT: 313 QTc: 443 Interpretive Statements SINUS TACHYCARDIA ABNORMAL RHYTHM ECG Compared to ECG 05/10/2021 03:55:38 No significant changes /store/S0/[id number]
--- NOTE | 2025-11-02 23:31 | XR_ITS ---
Examination: Abdomen AP single view Technique: AP portable supine abdomen, single view Exam date and time: Examination: AP supine portable abdomen single view TECHNIQUE: Supine AP portable abdomen single view Date and time: November 02, 2025, 11:33 p.m. INDICATIONS: Abdominal pain shortness of breath beginning 2 days ago. FINDINGS: Nonobstructive bowel gas pattern. An air-filled loop in the small bowel mildly distended Surgical clips in the upper right abdomen No free air Interstitial disease at the lung bases IMPRESSION: Nonobstructive bowel gas pattern Minimal small bowel ileus
--- NOTE | 2025-11-02 23:33 | PD.EDADULT ---
ED General RME/HPI General Chief complaint: Shortness of Breath/Dyspnea Stated complaint: sob Time Seen by Provider: 11/02/25 23:07 Arrival date/time: 11/02/25 22:46 Related Data Home Medications ?Medication ?Instructions ?Recorded ?Confirmed benazepril 20 mg tablet (Lotensin) 20 mg PO QDAY #0 tabs 03/22/15 10/12/24 nifedipine 60 mg tablet,extended 60 mg PO QDAY #0 tabs 11/25/16 10/12/24 release 24 hr (Procardia XL) metoprolol succinate 50 mg 50 mg PO QDAY hypertension 12/06/23 10/12/24 tablet,extended release 24 hr sildenafil (pulm.hypertension) 20 40 mg PO BID 12/06/23 10/12/24 mg tablet benazepril 5 mg tablet 5 mg QDAY 10/12/24 10/12/24 cetirizine 10 mg tablet 10 mg PO QDAY 10/12/24 10/12/24 hydrocodone 10 mg-acetaminophen 10 - 325 tab PO BID PRN Pain 10/12/24 10/12/24 325 mg tablet magnesium oxide 400 mg (241.3 mg 400 mg PO TID 10/12/24 10/12/24 magnesium) tablet Previous Rx's ?Medication ?Instructions ?Recorded calcium carbonate 600 mg PO BID #60 tabs 12/08/23 rizatriptan 10 mg disintegrating See Rx Instructions PO .COMPLEX 08/31/25 tablet (Maxalt-HEALTHCARE ADMINISTRATOR) #10 tabs Allergies Allergy/AdvReac Type Severity Reaction Status Date / Time aspirin Allergy Severe SWELLING Verified 08/11/25 17:49 TO FACE codeine Allergy Severe RASH Verified 08/11/25 17:49 Penicillins Allergy Severe RASH,SWELL Verified 08/11/25 17:49 UP, HIVES Sulfa (Sulfonamide Allergy Diarrhea Verified 08/11/25 17:49 Antibiotics) ED Exam Narrative Physical exam: Physical Exam: GENERAL: Awake, answering questions appropriately, appears stated age HEENT: NC/AT. Moist mucosa. PERRLA/EOMI. Conjunctival pallor noted. CARDIO: Tachycardia, no obvious murmurs, no JVD. PULM: No coughing but visibly appears short of breath on supplemental oxygen, 6 L oxygen mask. Crackles auscultated bilaterally, no wheeze/rales or rhonchi GI: Abdomen soft, NT/ND, +BS. SKIN/MSK/EXT: No wounds/discoloration/rashes/edema/amputations. +Pedal pulses present B/L. NEURO: Oriented x3, Moves extremities x4, no focal neurologic deficits noted Course Quality Measures none Orders Category Date Time Status Admit to Inpatient Status Routine Admission 11/03/25 05:03 Active Patient Condition Routine Admission 11/03/25 05:03 Ordered COVID-19 Screening Questionnaire NOW Care 11/03/25 05:00 Active Adjunct Trainer STAT Care 11/02/25 23:30 Active Continuous Pulse Oximetry STAT Care 11/02/25 23:30 Completed Decision to Admit X1 Care 11/03/25 05:00 Active EKG (ED ONLY) *Do not use* NOW Care 11/02/25 23:30 Completed In and Out Catheter X1PRN Care 11/02/25 23:30 Completed Insert IV NOW Care 11/02/25 23:30 Active Miscellaneous Nursing Order NOW Care 11/03/25 05:03 Active NPO STAT Care 11/02/25 23:30 Active Notify provider NEEDED Care 11/03/25 05:03 Active Occult Blood,Stool (Nursing) NOW Care 11/03/25 05:11 Active Post Transfusion H&H X1 Care 11/03/25 00:15 Active Strict Intake and Output Routine Care 11/02/25 23:30 Ordered Transfuse,blood/blood products NOW Care 11/03/25 00:15 Active Diet Low Sodium (2gm) Diet 11/03/[address] chest wo con Routine Exams 11/03/25 05:07 Ordered CXRP [XR chest 1V portable] Stat Exams 11/02/25 23:50 Taken EKG (ED Only) Stat Exams 11/02/25 23:30 Ordered XR abdomen 1V Stat Exams 11/02/25 23:31 Completed Arterial Blood Gas Stat Lab 11/03/25 00:47 Completed B-Type Natriuretic Peptide Stat Lab 11/02/25 23:50 Completed Blood Culture (Lab) Stat Lab 11/02/25 23:54 Received CBC AM DRAW Lab 11/04/25 05:00 Ordered CBC AM DRAW Lab 11/05/25 05:00 Ordered CBC AM DRAW Lab 11/06/25 05:00 Ordered CBC Stat Lab 11/02/25 23:50 Completed COVID-19 Antigen (In-House) Stat Lab 11/02/25 23:57 Completed Comprehensive Metabolic Panel AM DRAW Lab 11/04/25 05:00 Ordered Comprehensive Metabolic Panel AM DRAW Lab 11/05/25 05:00 Ordered Comprehensive Metabolic Panel AM DRAW Lab 11/06/25 05:00 Ordered Comprehensive Metabolic Panel Stat Lab 11/02/25 23:50 Completed Ferritin Stat Lab 11/03/25 05:10 Ordered Iron Panel Stat Lab 11/03/25 05:10 Ordered LDH (Lactate Dehydrogenase) Stat Lab 11/02/25 23:50 Completed Lactate (Lactic Acid) Stat Lab 11/02/25 23:50 Completed Lipase Stat Lab 11/02/25 23:50 Completed Magnesium AM DRAW Lab 11/04/25 05:00 Ordered Magnesium AM DRAW Lab 11/05/25 05:00 Ordered Magnesium AM DRAW Lab 11/06/25 05:00 Ordered Magnesium Stat Lab 11/02/25 23:50 Completed Partial Thromboplastin Time Stat Lab 11/02/25 23:50 [address] Review Blood Smear Stat Lab 11/02/25 23:50 Completed Phosphorous Stat Lab 11/02/25 23:50 Completed Procalcitonin Stat Lab 11/02/25 23:50 Completed Prothrombin Time with INR Stat Lab 11/02/25 23:50 Completed Reticulocyte Count Stat Lab 11/03/25 05:12 Ordered Thyroid Stimulating Hormone AM DRAW Lab 11/04/25 05:00 Ordered Troponin I Stat Lab 11/02/25 23:50 Completed Type and Screen Stat Lab 11/03/25 00:53 Completed Urinalysis, C/S if Indicated Stat Lab 11/03/25 00:39 Completed Vitamin B12 Routine Lab 11/03/25 05:12 Ordered prbc [Red Blood Cells] Stat Lab 11/03/25 00:53 Completed Acetaminophen Tab [Tylenol Tab] Med 11/03/25 05:02 Active 650 mg PO Q6H PRN Acetaminophen Tab [Tylenol Tab] Med 11/02/25 23:51 Discontinued 650 mg PO X1 ONE Calcium Carbonate Med 11/03/25 09:00 Active 600 mg PO BID Enoxaparin [Lovenox] Med 11/03/25 09:00 Active 40 mg SC QDAY Levalbuterol Rt [Xopenex Rt Tiki] Med 11/03/25 05:06 Active 0.31 mg INH Q8HR PRN Levalbuterol Rt [Xopenex Rt Tiki] Med 11/03/25 00:02 Discontinued 0.63 mg INH X1 ONE Magnesium Oxide [Mag-Ox 400] Med 11/03/25 06:00 Active 400 mg PO TID Magnesium Sulfate 4 GM Ivpb [Magnesium Sulfate Ivpb] Med 11/03/25 01:16 Discontinued 4 gm in 50 ml IV X1 MethylPREDNISolone.* [SoluMEDROL Inj] Med 11/03/25 00:01 Discontinued 125 mg IVP X1 ONE Metoprolol Succinate Xl [Toprol Xl] Med 11/03/25 09:00 Discontinued 50 mg PO QDAY Metoprolol Tartrate [Lopressor] Med 11/03/25 09:00 Active 50 mg PO BID NIFEdipine [Procardia Xl] Med 11/03/25 09:00 Active 30 mg PO QDAY NIFEdipine [Procardia Xl] Med 11/03/25 09:00 Discontinued 60 mg PO QDAY Non-Formulary Medication Med 11/03/25 06:00 Pending 48 ea IH QID Ondansetron Inj [Zofran Inj] Med 11/03/25 05:02 Active 4 mg IVP Q6H PRN Pantoprazole [Protonix] Med 11/03/25 09:00 Active 40 mg PO QDAY Patient's Own Inhaler Med 11/03/25 01:49 Pending 48 ea PO X1 ONE Ringers Lactated 1000 ml [Lactated Ringers] 1,572 ml Med 11/02/25 23:30 Discontinued IV 1,572 mls/hr Senna [Senokot] Med 11/03/25 05:02 Active 1 tab PO QDAY PRN benazepril Med 11/03/25 09:00 Pending 5 mg PO QDAY levoFLOXacin/D5W 750MG IVPB [Levaquin Ivpb] Med 11/02/25 23:30 Discontinued 750 mg in 150 ml IV X1 sildenafil (pulm.hypertension) Med 11/03/25 09:00 Pending 40 mg PO BID Code Status Routine Oth 11/03/25 05:02 Ordered Oxygen Delivery NOW RT 11/02/25 23:30 Active Vital Signs Vital signs: Vital Signs Temperature 99.5 F 11/02/25 22:58 Pulse Rate 130 H 11/02/25 22:58 Respiratory Rate 18 11/02/25 22:58 Blood Pressure 117/70 12/04/25 22:58 Pulse Oximetry (%) 89 L 11/02/25 22:58 Oxygen Delivery Method Room Air 11/02/25 22:58 Discharge Plan Plan Patient Disposition: Admit Acute Care w/in Hospital Patient condition on transfer: Stable Prescriptions/Referrals Prescriptions/Med Rec: No Action benazepril [Lotensin] 20 MG tablet 20 mg PO QDAY Qty: 0 nifedipine [Procardia XL] 60 MG/BOTTLE tablet extended release 24 hr 60 mg PO QDAY Qty: 0 rizatriptan [Maxalt-HEALTHCARE ADMINISTRATOR] 10 mg tablet,disintegrating See Rx Instructions .ROUTE .COMPLEX Qty: 10 0RF Rx Instructions: take 1 tab at onset of headache; if no relief may repeat 1 tab after at least 2 hrs; max = 3 tabs/24 hr metoprolol succinate 50 mg tablet extended release 24 hr 50 mg PO QDAY Patient Comments: TAKE 1 TABLET BY MOUTH TWICE A DAY sildenafil (pulm.hypertension) 20 mg tablet 40 mg PO BID calcium carbonate 600 mg calcium (1,500 mg) Tablet 600 mg PO BID Qty: 60 0RF cetirizine 10 mg tablet 10 mg PO QDAY Patient Comments: TAKE 1 TABLET BY MOUTH EVERY DAY benazepril 5 mg tablet 5 mg QDAY Patient Comments: TAKE 1 TABLET BY MOUTH EVERY DAY hydrocodone-acetaminophen 10-325 mg tablet 10 - 325 tab PO BID PRN (Reason: Pain) Patient Comments: TAKE 1 TABLET BY MOUTH TWICE A DAY NEEDED FOR PAIN magnesium oxide 400 mg (241.3 mg magnesium) tablet 400 mg PO TID Patient Comments: TAKE 1 TABLET BY MOUTH THREE TIMES A DAY Referrals: Juany Cohen MD [Primary Care Provider, Nephrology] - In 1 week Problem List Clinical Impression: Acute on chronic hypoxic respiratory failure Patient/Caregiver Discharge Instructions Print Language: Setswana Stand Alone Forms: [place] Award Info., Patient Portal Info Letter MD Attestation Attestation I, Dr. Fitzgerald, have reviewed the history, exam, and assessment of the patient. I have evaluated the patient independently and agree with the plan of care documented by the resident Dr. Lui. All diagnostic studies were reviewed and discussed. I confirm the diagnosis as documented by the resident. I was present during the Medical Decision Making for this patient. The patient?s plan of care was created between myself and the resident and consistent with our discussion of the patient?s case. MDM Narrative MDM hospital course (for use when minimal MDM required): HPI: 55-year-old female with past medical history of scleroderma, Raynaud's phenomenon, crest syndrome, interstitial lung disease with pulmonary fibrosis, pulmonary arterial hypertension, hypertension, iron deficiency anemia presenting to the ED on 11/03 with increased work of breathing and shortness of breath. Patient states that her shortness of breath is worse than usual and started worsening yesterday. She denies having any sick contacts, allergen exposures. She has significant history of interstitial lung disease and is on tyvaso inhaler which she uses 4 times a day in addition to Breo inhaler. She denies having any chest pain, palpitations, dizziness but states that recently she started having difficulty ambulating due to the shortness of breath which prompted her to come to the emergency room. She does state that she has exposure to mold in her house and that she is actively looking for a new place to stay. On examination please refer to the physical exam section above; patient presented with normotension but tachycardia heart rate fluctuated between 120-130, respiratory rate of 18, mild febrile with 99 point degrees Fahrenheit Tmax saturating 89 initially on room air and placed on oxygen mask at 6 L saturating 95%. Labs are significant for leukocytosis of 18.4 with 83% neutrophil, significant microcytic anemia with a hemoglobin of 6.6, platelet count of 670, ABG showed mild acidosis with a pH of 7.34, pCO2 of 38, pO2 of 82 and a bicarb of 21. CMP was largely unremarkable other than significantly low corrected calcium of 8.3 and magnesium of 0.8, troponin was less than 0.020, BNP of 54, Pro-Osmin of 0.16. Urinalysis was negative for any signs of acute infection but there were some RBCs noted. Chest x-ray appears to show worsening pulmonary fibrosis but official radiology read is pending. Differentials for acute hypoxic respiratory failure include: Worsening pulmonary fibrosis, pneumonia including bacterial or viral, mold exposure, pneumonitis, aspergillosis, legionnaires disease, cocci #Acute hypoxic respiratory failure #Interstitial lung disease #Pulmonary fibrosis As noted above, patient has significant risk factor for developing superimposed infection due to pulmonary fibrosis Patient has pulmonary fibrosis secondary to scleroderma; controlled with inhaler as stated above in HPI Plan: Supplemental oxygenation therapy IV fluid resuscitation and IV Levaquin 700 mg x 1 Loading dose of Solu-Medrol 125 mg, breathing treatment, treating anemia as below Repleted with magnesium #Microcytic anemia #Likely severe iron deficiency anemia Low suspicion for acute blood loss anemia as the patient denies having any vaginal bleeding, urinary bleeding, melena, hematemesis or hematochezia Patient has history of iron deficiency anemia and has in the past received IV iron infusions She is presenting with significantly low hemoglobin of 6.[address] below her baseline of 10 Consent obtained for 1 unit of PRBC Plan: Transfuse Monitor hemoglobin with repeat H&H after transfusion is completed Patient seen and examined with attending Dr. Amilcar Lui, DO PGY-2 Internal Medicine - GME Medication Administration(s) Medication Administration History Acetaminophen (Acetaminophen 325 Mg Tablet) 650 mg PO Q6H PRN PRN Reason: Fever >101.5 Stop: 12/03/25 05:01 Calcium Carbonate (Calcium Carbonate 600 Mg Tablet) 600 mg PO BID [facility] Stop: 12/03/25 08:59 Enoxaparin Sodium (Enoxaparin Sod Inj 40 Mg/0.4 Ml Syringe) 40 mg SC QDAY [facility] Stop: 11/17/25 08:59 Levalbuterol HCl (Levalbuterol Rt 0.31 Mg/3 Ml Nebu) 0.31 mg INH Q8HR PRN PRN Reason: WHEEZING Stop: 12/03/25 05:05 Magnesium Oxide (Magnesium Oxide 400 Mg Tablet) 400 mg PO TID [facility] Stop: 12/03/25 05:59 Metoprolol Tartrate (Metoprolol Tartrate 25 Mg Tablet) 50 mg PO BID SWETHA Stop: 12/03/25 08:59 Nifedipine (Nifedipine Xl 30 Mg Tabcr) 30 mg PO QDAY [facility] Stop: 12/03/25 08:59 Non-Formulary Medication (Benazepril) 5 mg PO QDAY [facility] Stop: 12/03/25 08:59 Non-Formulary Medication (Sildenafil (Pulm.Hypertension)) 40 mg PO BID [facility] Stop: 12/03/25 08:59 Non-Formulary Medication (Non-Formulary *See Comments* 1 Ea Ea) 48 ea IH QID [facility] Stop: 12/03/25 05:59 Ondansetron HCl (Ondansetron Inj 2 Mg/Ml Inj 2 Ml) 4 mg IVP Q6H PRN; Protocol PRN Reason: NAUSEA OR VOMITING Stop: 12/03/25 05:01 Pantoprazole Sodium (Pantoprazole 40 Mg Tablet) 40 mg PO QDAY SWETHA Stop: 12/03/25 08:59 Patient Own Medication (Patient's Own Inhaler 1 Ea Inhaler) 48 ea PO X1 ONE Stop: 11/03/25 01:50 Sennosides (Senna Tablet) 1 tab PO QDAY PRN; Protocol PRN Reason: constipation Stop: 12/03/25 05:01 Discontinued Medications Acetaminophen (Acetaminophen 325 Mg Tablet) 650 mg PO X1 ONE Stop: 11/02/25 23:52 Last Admin: 11/03/25 00:08 Dose: 650 mg Documented By: NORA Lactated Ringer's (Lactated Ringers) 1,572 mls @ 1,572 mls/hr 30 ml/kg infuse over 60 min (1572 ml) IV .Q1H ONE Stop: 11/03/25 00:29 Last Infusion: 11/03/25 01:11 Dose: Infused Documented By: Admin: 11/02/25 23:52 Dose: 1,572 mls/hr Documented By: NORA Levofloxacin/Dextrose (Levaquin Ivpb) 750 mg in 150 mls @ 100 mls/hr IV X1 ONE Stop: 11/03/25 00:59 Last Infusion: 11/03/25 01:23 Dose: Infused Documented By: Admin: 11/02/25 23:53 Dose: 100 mls/hr Documented By: NORA Magnesium Sulfate (Magnesium Sulfate Ivpb) 4 gm in 50 mls @ 12.5 mls/hr IV X1 ONE Stop: 11/03/25 05:15 Last Infusion: 11/03/25 05:23 Dose: Infused Documented By: Admin: 11/03/25 01:23 Dose: 12.5 mls/hr Documented By: Levalbuterol HCl (Levalbuterol Rt 0.63 Mg/3 Ml Nebu) 0.63 mg INH X1 ONE Stop: 11/03/25 00:03 Last Admin: 11/03/25 00:11 Dose: 0.63 mg Documented By: SHERRON Methylprednisolone Sodium Succinate (Methylprednisolone Sod Succ 62.5 Mg/Ml 2ml Vial) 125 mg IVP X1 ONE Stop: 11/03/25 00:02 Last Admin: 11/03/25 00:08 Dose: 125 mg Documented By: NORA Metoprolol Succinate (Metoprolol Succinate Xl 25 Mg Tabcr) 50 mg PO QDAY [facility] Stop: 12/03/25 08:59 Nifedipine (Nifedipine Xl 30 Mg Tabcr) 60 mg PO QDAY [facility] Stop: 12/03/25 08:59
--- NOTE | 2025-11-02 23:50 | XR_ITS ---
EXAMINATION: AP chest single view TECHNIQUE: AP portable upright chest single view Date and time: November 02, 2025, 11:58 p.m., comparison August 29, 2025 INDICATIONS: Shortness of breath beginning 2 days ago. FINDINGS: Extensive bilateral pneumonia Mild enlargement left ventricle Prominent osteopenia IMPRESSION: Extensive bilateral pneumonia
[2025-11-02 23:58] VITALS: PULSE 116; RESP 19; RESP 83; O2SAT 100
[2025-11-03] VITALS (26 sets, daily range): BP systolic 113–141; BP diastolic 59–89; PULSE 91–137; RESP 18–27; TEMP 36.3–37.1; O2SAT 91–100
[2025-11-03 00:04] LABS: Lactate (Lactic Acid) 1.2 mMol/L (0.4-2.0)
[2025-11-03] MEDS: MethylPREDNISolone SOD SUCC 62.5 MG/ML 2ML VIAL 125 MG IVP (00:08)
[2025-11-03] MEDS: ACETAMINOPHEN 325 MG TABLET 650 MG PO ×2 (00:08→13:55)
[2025-11-03 00:09] LABS: Basophils # (Auto) 0.1 Thou/mm3 (0.0-0.2); Basophils % (Auto) 0 % (0-2.5); Eosinophils # (Auto) 0.0 Thou/mm3 (0.0-0.5); Eosinophils % (Auto) 0 % (0-10); Hematocrit 23.1 % (36.0-46.0); Immature Granulocytes Auto 0.10 Thou/mm3 (0.00-0.00); Lymphocytes # (Auto) 1.8 Thou/mm3 (1.0-4.8); Lymphocytes % (Auto) 10 % (10-50); Mean Corpuscular HGB Conc 28.6 g/dl (31.0-37.0); Mean Corpuscular Hemoglobin 20.4 pg (25.0-35.0); Mean Corpuscular Volume 71 fL (80-100); Monocytes # (Auto) 1.2 Thou/mm3 (0.0-0.8); Monocytes % (Auto) 6 % (0-12); Neutrophils # (Auto) 15.3 Thou/mm3 (1.8-7.7); Neutrophils % (Auto) 83 % (37-80); Nucleated Red Blood Cell # 0.08 Thou/mm3 (0.00-0.00); Nucleated Red Blood Cell % 0 /100 WBC (0); Platelet Count 670 Thou/mm3 (140-440); RDW Standard Deviation 46.9 fL (36.4-46.3); Red Blood Count 3.24 Miln/mm3 (4.00-5.20); White Blood Count 18.4 Thou/mm3 (3.6-11.0)
[2025-11-03 00:11] LABS: Hemoglobin 6.6 g/dL (12.0-16.0)
[2025-11-03] MEDS: LEVALBUTEROL RT 0.63 MG/3 ML NEBU INH (00:11)
[2025-11-03 00:29] LABS: INR 1.1 (0.9-1.3); Partial Thromboplastin Time 30.3 Seconds (22.0-36.0); Prothrombin Time 11.4 Seconds (9.0-12.2)
[2025-11-03 00:42] LABS: Alanine Aminotransferase < 7 U/L (10-49); Albumin, Serum 4.3 gm/dL (3.5-5.0); Albumin/Globulin Ratio 1.0 (1.2-2.2); Alkaline Phosphatase 76 U/L (46-116); Anion Gap 13 (7-16); Aspartate Amino Transferase 14 U/L (0-34); BUN/Creatinine Ratio 18 Ratio (12-20); Bilirubin,Total 0.4 mg/dL (0.3-1.2); Blood Urea Nitrogen 18 mg/dL (9-23); Calcium 8.3 mg/dL (8.3-10.6); Calcium (Corrected) 8.3 mg/dL (8.5-10.1); Carbon Dioxide 21.2 mMol/L (20.0-31.0); Chloride 107 mMol/L (98-107); Creatinine (Component) 1.0 mg/dL (0.6-1.3); Estimated Creatinine Clearance 51.3 mL/min (>60); Globulin 4.1 gm/dL (2.3-3.5); Glucose 147 mg/dL (74-106); LDH (Lactate Dehydrogenase) 247 U/L (120-246); Lipase 63 U/L (12-53); Osmolality,Calculated 286 (275-295); Phosphorous 2.7 mg/dL (2.4-5.1); Potassium 3.5 mMol/L (3.4-5.1); Procalcitonin 0.16 ng/ml (0.0-0.49); Sodium 141 mMol/L (136-145); Total Protein 8.4 gm/dL (5.7-8.2); Troponin I < 0.020 ng/mL (0.0-0.045); eGFR > 60 See Note
[2025-11-03 00:48] LABS: Magnesium 0.8 mg/dL (1.6-2.6)
[2025-11-03 00:55] LABS: Base Excess -5 (-3-3); HCO3 21 mEq/L (20-26); Inspired O2, VO2 Liters 7 L/min; Inspired Oxygen, FIO2 21 %; O2 Saturation 97 % (91-98); PCO2 38 mmHg (32.0-48.0); PO2 82 mmHg (83-108); pH, Arterial 7.34 (7.35-7.45)
[2025-11-03 01:01] LABS: Allen Test Performed/OK; Puncture Site Right Radial
[2025-11-03 01:03] LABS: Collection Type, Urine Clean Catch
[2025-11-03 01:10] LABS: Bilirubin,Urine Negative (Negative); Blood,Urine 1+ (Negative); Clarity,Urine Clear (Clear/Hazy); Color,Urine Yellow (Lt Yel-Yel); Culture Indicated,Urine Not Indicated; Glucose, Urine Negative (Negative); Ketones,Urine Negative (Negative); Leukocyte Esterase,Urine Negative (Negative); Nitrite,Urine Negative (Negative); PH,Urine 6.0 (5.0-7.0); Protein,Urine 2+ (Neg - Trace); RBC,Urine 6 /hpf (0-3); Specific Gravity,Urine 1.022 (1.001-1.035); Squamous Epithelial Cell,Urine < 1 /hpf (0-5); Urobilinogen,Urine Negative mg/dL (0.0-1.0); WBC,Urine 3 /hpf (0-5)
[2025-11-03 01:16] LABS: B-Type Natriuretic Peptide 54 pg/mL (0-100)
[2025-11-03] MEDS: Magnesium Sulfate 4 GM Ivpb 4 GM/50 ML BAG IV ×2 (01:23→07:23)
[2025-11-03 01:28] LABS: COVID-19 Antigen (In-House) Negative (Negative)
[2025-11-03 01:37] LABS: Path Review Blood Smear Sent to Pathologist
--- NOTE | 2025-11-03 05:07 | XR_ITS ---
Examination: CT chest, without intravenous contrast. Sagittal and coronal 2-D reconstructions. Exam date and time: November 03, 2025, 0838 hours INDICATIONS: Shortness of breath today, extensive bilateral pneumonia on chest film November 02, 2025 11:58 p.m. CTDI:vol (mGy) 10.3 DLP: (mGycm) 347 Technique: Multiple 3.0 mm axial sections of the chest to been obtained. Bone and lung density settings are obtained. Sagittal and coronal 2-D reconstructions have been obtained. Low dose protocols were performed. One or more of the following dose reduction techniques were used; automated exposure control, adjustment of the mA and/or KV according to patient size, use of iterative reconstruction technique. Findings: Thoracic aortic calcification no aneurysmal dilatation Main pulmonary artery segment 31 mm Heavy calcification left anterior descending and left circumflex coronary arteries Mild enlargement left atrium left ventricle No mediastinal lymphadenopathy COPD with multiple areas of airspace destruction and likely bronchiectasis predominantly in the right lung Extensive areas of bilateral pneumonia Blebs in the right lower lung zone No visualized liver lesion Absent gallbladder Spleen not enlarged No pancreatic or adrenal mass Mild thoracic spondylosis IMPRESSION: COPD Pulmonary artery hypertension Extensive bilateral pneumonia Bronchiectasis in the right lung
--- NOTE | 2025-11-03 05:24 | PD.RESHP ---
Documentation for date of: 11/03/25 [facility] History of Present Illness Chief complaint: worsening SOB History of present illness: A 55-year-old female with significant past medical history of scleroderma diagnosed almost 30 years ago, interstitial lung disease diagnosed at the same time, on oxygen 2 L since August 2025, Raynaud's disease, pulmonary hypertension, hypertension, GERD, migraine presented to the hospital with chief complaints of worsening shortness of breath than usual and increased tiredness since 2 weeks. Reported that at her baseline, she had shortness of breath due to her lung disease and since 3 months noted to have increased heart rate around 120 bpm for which she is following Dr. Alvarado and last visit is during August 2025, did echocardiogram and stress test, was supposed to follow-up with him later in the month. Reported that she is not able to do her routine daily activities and getting tired even by walking to the bathroom. Noted to have cough which is chronic per patient without any expectoration and did not note any worsening in the cough. Denies fever, recent sick contacts, nausea, vomiting, abdominal distention, pedal edema. Reported that she is following with smoking tobacco packing machine hand in [place] in the last visit is in August 2025 and recommended to follow-up with Dr. Alvarado in view of tachycardia at that time. Also follows with board worker Dr. Huang in [place] and no recent change in medications. Compliant with all the medications. ED course: - Vitals at the time of admission are significant for pulse rate 130 bpm, SpO2 89% on room air - Labs at the time of admission are significant for WBC 18.4, hemoglobin 6.6, platelets 670, potassium 3. 5, magnesium 0.8 - ABG showed pH 7.34, pCO2 38, pO2 82 - Urine analysis showed 6 RBC with 2+ proteinuria - Chest x-ray done at the time of admission showed bilateral diffuse infiltrates - Patient is admitted in the hospital for acute on chronic hypoxic respiratory failure, anemia Past medical history: Scleroderma, ILD, pulmonary hypertension, hypertension, GERD, Raynaud's disease, migraine Past surgical history: Cholecystectomy, left rotator cuff tear status postrepair, Amputation of distal left foot Social history: Stays at home with the family, denies smoking, alcohol, other illicit drug abuse. Allergies: Aspirin, codeine, penicillins, sulfa drugs. Review of Systems Review of Systems Systems Reviewed: All systems reviewed, normal except as documented Past Medical History Past Medical History NEUROLOGIC: Negative Neurological Disorders or Seizures CARDIAC: Positive Cardiac Disorders and Hypertension; Negative Hypercholesterolemia or Congestive Heart Failure RESPIRATORY: Positive Pneumonia and Pulmonary Fibrosis; Negative Chronic Obstructive Pulmonary Disease (COPD) GASTROINTESTINAL: Positive Gastrointestinal Disorders and Gastroesophageal Reflux Disease GENITOURINARY: Negative Genitourinary Disorders or Renal Disease REPRODUCTIVE: Positive Previous Pregnancies MUSCULOSKELETAL: Positive Musculoskeletal Disorders and Arthritis ENDOCRINE: Negative Endocrine Disorders, Diabetes Mellitus Type 1 or Diabetes Mellitus Type 2 HEMATOLOGIC: Positive Blood Disorders and Anemia OTHER HISTORY: Positive Hospitalization, Autoimmune Disease (scleroderma), Chemotherapy and Chicken Pox; Negative Blood Transfusions, Blood Transfusion Reaction, Anesthesia Reactions, Measles, Mumps or Cancer Family History FAMILY HISTORY: Positive Family Cardiac Disorders (mother CHF) and Family Surgery; Negative Family Psychiatric Problems, Family Respiratory Disorders, Family Gastrointestinal Problems, Family Cancer or Family Anesthesia Reaction Surgical History SURGICAL: Positive Abdominal Surgery and Amputation (left toes (all), left index) Social History SMOKING STATUS: Never smoker Exam Vital Signs Temp Pulse Resp BP Pulse Ox O2 Del Method O2 Flow Rate 98.7 F 111 H 20 133/68 H 97 Oxy Mask 4 11/03/25 04:32 11/03/25 04:32 11/03/25 04:32 11/03/25 04:32 11/03/25 04:32 11/03/25 01:51 11/03/25 04:32 Narrative Exam General: Awake. HEENT: Normocephalic, atraumatic, mucous membranes moist. Heart: Sinus tachycardia and regular rhythm, no murmurs. Lungs: Bilateral diffuse fine inspiratory crackles heard. Abdomen: Soft, nondistended, nontender, positive bowel sounds. ?No guarding or rebound tenderness. Neurologic: Alert and oriented x3, no gross neurological deficit, and patient able to move all 4 extremities. Extremities: No edema. Skin: No rash or ecchymoses. Results: Labs 11/03/25 14:11 11/03/25 14:11 Labs: Short CBC 11/02/25 Range/Units 23:50 WBC 18.4 H (3.6-11.0) Thou/mm3 Hgb 6.6 L* (12.0-16.0) g/dL Hct 23.1 L (36.0-46.0) % Plt Count 670 H (140-440) Thou/mm3 BMP 11/02/25 23:50 Sodium 141 Potassium 3.5 Chloride 107 Carbon Dioxide 21.2 BUN 18 Creatinine 1.0 Glucose 147 H Calcium 8.3 Cardiac Enzymes 11/02/25 Range/Units 23:50 Troponin I < 0.020 (0.0-0.045) ng/mL Liver Function 11/02/25 Range/Units 23:50 Total Bilirubin 0.4 (0.3-1.2) mg/dL AST 14 (0-34) U/L ALT < 7 L (10-49) U/L Alkaline Phosphatase 76 (46-116) U/L Albumin 4.3 (3.5-5.0) gm/dL Urine 11/03/25 Range/Units 00:39 Urine Color Yellow (Lt Yel-Yel) Urine Clarity Clear (Clear/Hazy) Urine pH 6.0 (5.0-7.0) Ur Specific [place] 1.022 (1.001-1.035) Urine Protein 2+ A (Neg - Trace) Urine Glucose (UA) Negative (Negative) ABG Interpretation ABG results: 11/03/25 00:47 ABG pH 7.34 L ABG pCO2 38 ABG pO2 82 L ABG HCO3 21 ABG O2 Saturation 97 ABG Base Excess -5 L Quality Measures Quality Measures VTE prophylaxis Medications Home Medications and Allergies Home Medications ?Medication ?Instructions ?Recorded ?Confirmed ?Type benazepril 20 mg tablet (Lotensin) 5 mg PO QDAY #0 tabs 03/22/15 11/03/25 History nifedipine 60 mg tablet,extended 30 mg PO QDAY #0 tabs 11/25/16 11/03/25 History release 24 hr (Procardia XL) metoprolol succinate 50 mg 50 mg PO QDAY hypertension 12/06/23 11/03/25 History tablet,extended release 24 hr sildenafil (pulm.hypertension) 20 40 mg PO BID 12/06/23 11/03/25 History mg tablet cetirizine 10 mg tablet 10 mg PO QDAY 10/12/24 11/03/25 History Held on 11/03/25. Instructions: Doctor's Order hydrocodone 10 mg-acetaminophen 10 - 325 tab PO BID PRN Pain 10/12/24 11/03/25 History 325 mg tablet magnesium oxide 400 mg (241.3 mg 400 mg PO TID 10/12/24 11/03/25 History magnesium) tablet fexofenadine 180 mg tablet 180 mg PO Q24H allergies 11/03/25 11/03/25 History (Allergy Relief (fexofenadine)) omeprazole 20 mg capsule,delayed 20 mg PO DAILY 11/03/25 11/03/25 History release Allergies Allergy/AdvReac Type Severity Reaction Status Date / Time aspirin Allergy Severe SWELLING Verified 08/11/25 17:49 TO FACE codeine Allergy Severe RASH Verified 08/11/25 17:49 Penicillins Allergy Severe RASH,SWELL Verified 08/11/25 17:49 UP, HIVES Sulfa (Sulfonamide Allergy Diarrhea Verified 08/11/25 17:49 Antibiotics) Visit Medications Acetaminophen (Acetaminophen 325 Mg Tablet) 650 mg PO Q6H PRN PRN Reason: Fever >101.5 Stop: 12/03/25 05:01 Calcium Carbonate (Calcium Carbonate 600 Mg Tablet) 600 mg PO BID ON LICENSE OF [facility] Stop: 12/03/25 08:59 Enoxaparin Sodium (Enoxaparin Sod Inj 40 Mg/0.4 Ml Syringe) 40 mg SC QDAY ON LICENSE OF [facility] Stop: 11/17/25 08:59 Levalbuterol HCl (Levalbuterol Rt 0.31 Mg/3 Ml Nebu) 0.31 mg INH Q8HR PRN PRN Reason: WHEEZING Stop: 12/03/25 05:05 Magnesium Oxide (Magnesium Oxide 400 Mg Tablet) 400 mg PO TID ON LICENSE OF [facility] Stop: 12/03/25 05:59 Metoprolol Tartrate (Metoprolol Tartrate 25 Mg Tablet) 50 mg PO BID ON LICENSE OF [facility] Stop: 12/03/25 08:59 Nifedipine (Nifedipine Xl 30 Mg Tabcr) 30 mg PO QDAY ON LICENSE OF [facility] Stop: 12/03/25 08:59 Non-Formulary Medication (Benazepril) 5 mg PO QDAY ON LICENSE OF [facility] Stop: 12/03/25 08:59 Non-Formulary Medication (Sildenafil (Pulm.Hypertension)) 40 mg PO BID ON LICENSE OF [facility] Stop: 12/03/25 08:59 Non-Formulary Medication (Non-Formulary *See Comments* 1 Ea Ea) 48 ea IH QID ON LICENSE OF [facility] Stop: 12/03/25 05:59 Ondansetron HCl (Ondansetron Inj 2 Mg/Ml Inj 2 Ml) 4 mg IVP Q6H PRN; Protocol PRN Reason: NAUSEA OR VOMITING Stop: 12/03/25 05:01 Pantoprazole Sodium (Pantoprazole 40 Mg Tablet) 40 mg PO QDAY ON LICENSE OF [facility] Stop: 12/03/25 08:59 Patient Own Medication (Patient's Own Inhaler 1 Ea Inhaler) 48 ea PO X1 ONE Stop: 11/03/25 01:50 Sennosides (Senna Tablet) 1 tab PO QDAY PRN; Protocol PRN Reason: constipation Stop: 12/03/25 05:01 Discontinued Medications Acetaminophen (Acetaminophen 325 Mg Tablet) 650 mg PO X1 ONE Stop: 11/02/25 23:52 Last Admin: 11/03/25 00:08 Dose: 650 mg Lactated Ringer's (Lactated Ringers) 1,572 mls @ 1,572 mls/hr 30 ml/kg infuse over 60 min (1572 ml) IV .Q1H ONE Stop: 11/03/25 00:29 Last Infusion: 11/03/25 01:11 Dose: Infused Levofloxacin/Dextrose (Levaquin Ivpb) 750 mg in 150 mls @ 100 mls/hr IV X1 ONE Stop: 11/03/25 00:59 Last Infusion: 11/03/25 01:23 Dose: Infused Magnesium Sulfate (Magnesium Sulfate Ivpb) 4 gm in 50 mls @ 12.5 mls/hr IV X1 ONE Stop: 11/03/25 05:15 Last Infusion: 11/03/25 05:23 Dose: Infused Levalbuterol HCl (Levalbuterol Rt 0.63 Mg/3 Ml Nebu) 0.63 mg INH X1 ONE Stop: 11/03/25 00:03 Last Admin: 11/03/25 00:11 Dose: 0.63 mg Methylprednisolone Sodium Succinate (Methylprednisolone Sod Succ 62.5 Mg/Ml 2ml Vial) 125 mg IVP X1 ONE Stop: 11/03/25 00:02 Last Admin: 11/03/25 00:08 Dose: 125 mg Metoprolol Succinate (Metoprolol Succinate Xl 25 Mg Tabcr) 50 mg PO QDAY ON LICENSE OF [facility] Stop: 12/03/25 08:59 Nifedipine (Nifedipine Xl 30 Mg Tabcr) 60 mg PO QDAY ON LICENSE OF [facility] Stop: 12/03/25 08:59 Assessment & Plan Plan A 55-year-old female with significant past medical history of scleroderma diagnosed almost 30 years ago, interstitial lung disease diagnosed at the same time, on oxygen 2 L since August 2025, Raynaud's disease, pulmonary hypertension, hypertension, migraine, GERD presented to the hospital with chief complaints of worsening shortness of breath than usual and increased tiredness since 2 weeks and admitted in the hospital for acute on chronic hypoxic respiratory failure, anemia # Acute on chronic hypoxic respiratory failure # Likely secondary to ILD flare up # Underlying interstitial lung disease secondary to current tissue disorder, scleroderma - Presented to the hospital with chief complaints of gradual, progressive worsening shortness of breath than usual since 2 weeks - Reported that she is using 2 L of oxygen throughout the night and in the morning as needed since August 2025 - Reported that she is having chronic cough but reported no recent worsening or expectoration - Denies fever, recent sick contacts, nausea, vomiting, abdominal pain, headache. - On physical examination, noted to have bilateral diffuse inspiratory fine crackles Labs: - Vitals at the time of admission are significant for pulse rate 130 bpm, SpO2 89% on room air - Labs at the time of admission are significant for WBC 18.4, hemoglobin 6.6, platelets 670, potassium 3.5, magnesium 0.8 - Procalcitonin is within normal limits - ABG showed pH 7.34, pCO2 38, pO2 82 - Urine analysis showed 6 RBC with 2+ proteinuria - Chest x-ray done at the time of admission showed bilateral diffuse infiltrates Plan: - Received 125 mg of IV Methylpred in the ED - Started on prednisone 0.5 mg/kg-30 mg, recommended to begin taper after 1 to 2 weeks, reduce by 5 mg every 7 to 10 days - CT chest is ordered to evaluate the extent of progression of ILD - 1 dose of Lasix is given but patient does not appear to be fluid overloaded - Antibiotics are not started as patient does not appear to have any signs of infection including fever or sputum production, Pro-Osmin is negative - Blood cultures are sent. COVID, influenza is ordered - Nebulizations as needed - Incentive spirometry # Acute blood loss anemia # Microcytic hypochromic anemia # Likely secondary to iron deficiency and with suspected superimposed blood loss - Hemoglobin at the time of admission is 6.6 - Baseline hemoglobin in July 2025 is 10.8 - MCV is 71, MCH 20.4, MCHC 28.6 - Denies hematemesis, hematochezia, melena Plan - 2 units of PRBC is given - Posttransfusion H&H, follow-up with results - Iron panel, B12, reticulocyte count is [id number] with the results - Peripheral smear sent - Stool for occult blood is ordered - Consider consulting GI specialist for further investigation # Leukocytosis # Thrombocytosis - WBC at the time of presentation is 18.4, platelet count is 670 - Denies fever, any other associated symptoms or signs of infection Plan - Continue to monitor CBC # Hypomagnesemia - Magnesium at the time of presentation is 0.8 - 4 g of magnesium is given in the ED Plan - 4 more grams of magnesium sulfate is ordered - Resumed home magnesium # Pulmonary hypertension # Sinus tachycardia - Patient is currently using sildenafil 40 mg twice daily and Tyvaso 48 mcg 4 times inhalation - Following up with smoking tobacco packing machine hand in [place] and mechatronics technician, Dr. Covarrubias - Reported that patient was referred to mechatronics technician in view of tachycardia since 2 months and underwent echocardiogram - results pending, stress test is pending Plan - Resumed her home medications including sildenafil and Tyvaso - Resumed home metoprolol tartrate 50 mg twice daily # Systemic hypertension # Raynaud's disease - Blood pressures at the time of admission is within normal limits - Reported that she is taking benazepril 5 mg once daily, nifedipine 30 mg once daily Plan - Resumed her home medications # Migraine # GERD -Stable as of now Hospital Maintenance: Dispo: Tele DVT ppx: Lovenox GI ppx: Protonix Diet: Low salt IV lines: Peripheral Code status: Full Patient plan of care was discussed with the attending physician, Dr. Gabriella Diamond, PGY2 Attending Provider Attestation/Addendum After examination of the patient and review of the clinical data I feel that this patient needs admission to the hospital for further treatment/evaluation. Plan of care discussed with patient and is in agreement. I Danii Quiroz MD, attest that I was physically present for chavira portions of evaluation, and examined patient, labs and imagings and plan of care were discussed with IM residents team, and I agree with the findings and plans documented above.
--- NOTE | 2025-11-03 05:37 | ECHO_ITS ---
Patient Info Name: Sandra Onofre Age: 55 years : 1970 Gender: Female Ht: 160 cm Wt: 59 kg BSA: 1.63 m2 BP: 127 / 79 mmHg HR: 449 bpm Exam Date: 11/03/2025 3:43 PM Admit Date: 11/03/2025 Site: [facility] Patient Status: I Exam Type: CA echo doppler complete Portable Sawyer: Rissa Reyez Ordering Physician: Mu Diamond Study Info Indications ILD, Pulmonary hypertension - Primary Location: [id number] Left Ventricular Outflow Tract Name Value Normal LVOT 2D LVOT Diameter 1.9 cm LVOT Doppler LVOT Peak Velocity 137 cm/s LVOT Mean Gradient 4 mmHg LVOT VTI 26 cm LVOT VTI/AV VTI Ratio 0.9 LVOT Stroke Volume 75 ml Pulmonic Valve Name Value Normal PV Doppler PV Peak Velocity 137 cm/s PV Regurgitation Doppler TN Peak End Diastolic Velocity 187 cm/s Mitral Valve Name Value Normal MV Doppler MV Decel [place] 994 cm/s2 MV PHT 38 ms MV Area (PHT) 5.8 cm2 4.0-5.0 MV Diastolic Function MV E Peak Velocity 130 cm/s Tricuspid Valve Name Value Normal TV Regurgitation Doppler TR Peak Velocity 183 cm/s Estimated PAP/RSVP RA Pressure 3 mmHg <=5 PA Systolic Pressure 16 mmHg <36 RV Systolic Pressure 16 mmHg <36 Aortic Valve Name Value Normal AV 2D/MM AV Cusp Sep (MM) 1.0 cm AV Doppler AV Peak Velocity 175 cm/s AV Mean Gradient 6 mmHg AV VTI 30 cm AV Area (Cont Eq VTI) 2.5 cm2 >=3.0 AV Area (Cont Eq Leonardo) 2.2 cm2 AV DI (Leonardo) 0.78 AV Regurgitation 2D LVOT Area 2.8 cm2 Ventricles Name Value Normal LV Dimensions 2D/MM IVS Diastolic Thickness (2D) 1.1 cm 0.6-0.9 LVID Diastole (2D) 4.2 cm 3.8-5.2 LVIW Diastolic Thickness (2D) 1.1 cm 0.6-0.9 LVID Systole (2D) 1.8 cm 2.2-3.5 LVOT Diameter 1.9 cm LV Mass (2D Cubed) 157.06 g 67.00-162.00 LV Mass Index (2D Cubed) 97 g/m2 43-95 Relative Wall Thickness (2D) 0.52 <=0.42 IVS/LVIW Diastolic Thickness (2D) 1.00 0.00-1.50 LV Fractional Shortening/Ejection Fraction 2D/MM LV Fractional Shortening (2D) 57 % 27-45 LV EF (2D Teichholz) 88 % Atria Name Value Normal LA Dimensions LA Volume (4C A-L) 49 ml LA Volume (BP A-L) 54 ml Left Ventricle Left ventricular chamber dimension is normal. Left ventricular systolic function is normal with visually estimated ejection fraction of 60-65%. There is mild concentric hypertrophy noted in the left ventricle. Left ventricular segmental wall motion is normal. There is normal diastolic function in the left ventricle. Right Ventricle Right ventricular chamber dimension is normal. Right ventricular systolic function is normal. Left Atrium Left atrial chamber dimension is mildly enlarged. Right Atrium Right atrial chamber dimension is normal. Aortic Valve The aortic valve is trileaflet. There is mild aortic valve sclerosis. There is no aortic valve stenosis with a peak velocity of 175 cm/s, mean gradient of 6 mmHg, and aortic valve area of 2.5 cm2. There is no aortic valve regurgitation. Pulmonic Valve The pulmonic valve is normal. There is no pulmonic valve stenosis. There is trace pulmonic regurgitation. Mitral Valve The mitral valve has thickened leaflets. There is no mitral valve stenosis. There is mild mitral valve regurgitation. Tricuspid Valve The tricuspid valve leaflets are normal. There is no tricuspid valve stenosis. There is mild tricuspid valve regurgitation. No pulmonary hypertension, estimated pulmonary arterial systolic pressure is 16 mmHg and systemic blood pressure of 127 mmHg in systole. Pericardium/Pleural The pericardium appears normal. There is no pericardial effusion. No pleural effusion visualized. Inferior Vena Cava Normal inferior vena cava with >50% collapse upon inspiration consistent with normal right atrial pressure, 3 mmHg. Aorta The aortic measurements are indexed to age and body surface area. The aortic root at the sinus of Valsalva is not well visualized. The prox ascending aorta is not well visualized. Summary 1. Left ventricle size is normal and systolic function is normal. Estimated ejection fraction is 60-65%. There is normal diastolic function. 2. Right ventricle chamber size is normal and systolic function is normal. Estimated RVSP is 16 mmHg. 3. There is mild aortic valve sclerosis with no stenosis and no regurgitation. 4. There is mild mitral valve regurgitation. Mild MAC. 5. There is mild tricuspid valve regurgitation. 6. The left atrium is mildly enlarged. The right atrium is normal. 7. Normal IVC with estimated RA pressure 3 mmHg. 8. Normal PA pressure. Report Signatures Finalized by Beryl Tariq on 11/03/2025 04:40 PM
[2025-11-03] MEDS: FUROSEMIDE INJ 10 MG/ML 4ML VIAL 40 MG IVP (06:18)
[2025-11-03] MEDS: MAGNESIUM OXIDE 400 MG TABLET PO ×3 (06:20→21:05)
[2025-11-03 06:29] LABS: Immature Reticulocyte Fraction 18.1 % (3.0-15.9); Reticulocyte % (Auto) 1.9 % (0.5-1.5); Reticulocyte Absolute Auto 75.7 Biln/L (25.0-75.0); Reticulocyte Hgb Content 17.8 pg (28.0-35.0)
[2025-11-03 06:37] LABS: Sed Rate (ESR) 104 mm/hr (0-30)
[2025-11-03 06:45] LABS: D-Dimer 1630 ng/mL (<600)
[2025-11-03 07:00] LABS: Basophils # (Auto) 0.0 Thou/mm3 (0.0-0.2); Basophils % (Auto) 0 % (0-2.5); Eosinophils # (Auto) 0.0 Thou/mm3 (0.0-0.5); Eosinophils % (Auto) 0 % (0-10); Hematocrit 29.6 % (36.0-46.0); Hemoglobin 9.0 g/dL (12.0-16.0); Immature Granulocytes Auto 0.18 Thou/mm3 (0.00-0.00); Lymphocytes # (Auto) 0.8 Thou/mm3 (1.0-4.8); Lymphocytes % (Auto) 6 % (10-50); Mean Corpuscular HGB Conc 30.4 g/dl (31.0-37.0); Mean Corpuscular Hemoglobin 23.0 pg (25.0-35.0); Mean Corpuscular Volume 76 fL (80-100); Monocytes # (Auto) 0.1 Thou/mm3 (0.0-0.8); Monocytes % (Auto) 1 % (0-12); Neutrophils # (Auto) 14.2 Thou/mm3 (1.8-7.7); Neutrophils % (Auto) 93 % (37-80); Nucleated Red Blood Cell # 0.04 Thou/mm3 (0.00-0.00); Nucleated Red Blood Cell % 0 /100 WBC (0); Platelet Count 660 Thou/mm3 (140-440); RDW Standard Deviation 53.8 fL (36.4-46.3); Red Blood Count 3.92 Miln/mm3 (4.00-5.20); White Blood Count 15.4 Thou/mm3 (3.6-11.0)
[2025-11-03 07:01] LABS: C-Reactive Protein > 10.0 mg/dL (0.0-0.9)
[2025-11-03 07:02] LABS: Ferritin 51 ng/mL (7.3-270.7); Iron 17 mcg/dL (50-170); Percent Iron Saturation 5 % (20-55); Total Iron Binding Capacity 331 mcg/dL (250-425); Unsaturated Iron Binding 314 (225-295); Vitamin B12 264 pg/mL (211-911)
[2025-11-03 07:11] LABS: COVID-19 Antigen (In-House) Negative (Negative); Influenza A Ag Negative; Influenza B Ag Negative
[2025-11-03 07:34] LABS: Alanine Aminotransferase < 7 U/L (10-49); Albumin, Serum 4.2 gm/dL (3.5-5.0); Albumin/Globulin Ratio 1.1 (1.2-2.2); Alkaline Phosphatase 76 U/L (46-116); Anion Gap 11 (7-16); Aspartate Amino Transferase 18 U/L (0-34); BUN/Creatinine Ratio 15 Ratio (12-20); Bilirubin,Total 0.4 mg/dL (0.3-1.2); Blood Urea Nitrogen 12 mg/dL (9-23); Calcium 8.1 mg/dL (8.3-10.6); Calcium (Corrected) 8.1 mg/dL (8.5-10.1); Carbon Dioxide 23.0 mMol/L (20.0-31.0); Chloride 108 mMol/L (98-107); Creatinine (Component) 0.8 mg/dL (0.6-1.3); Estimated Creatinine Clearance 64.2 mL/min (>60); Globulin 3.8 gm/dL (2.3-3.5); Glucose 171 mg/dL (74-106); Magnesium 2.3 mg/dL (1.6-2.6); Osmolality,Calculated 286 (275-295); Potassium 4.4 mMol/L (3.4-5.1); Sodium 142 mMol/L (136-145); Total Protein 8.0 gm/dL (5.7-8.2); eGFR > 60 See Note
[2025-11-03] MEDS: PANTOPRAZOLE 40 MG TABLET PO (09:11)
[2025-11-03] MEDS: METOPROLOL TARTRATE 25 MG TABLET 50 MG PO ×2 (09:12→21:05)
[2025-11-03] MEDS: ENOXAPARIN SOD INJ 40 MG/0.4 ML SYRINGE SC (09:14)
[2025-11-03] MEDS: NIFEdipine XL 30 MG TABCR PO (09:28)
[2025-11-03] MEDS: CALCIUM CARBONATE 600 MG TABLET PO ×2 (09:28→21:05)
--- NOTE | 2025-11-03 09:50 | PD.RESPRO ---
Documentation for date of: 11/03/25 Subjective Subjective Interval history: History of present illness: A 55-year-old female with significant past medical history of scleroderma diagnosed almost 30 years ago, interstitial lung disease diagnosed at the same time, on oxygen 2 L since August 2025, Raynaud's disease, pulmonary hypertension, hypertension, GERD, migraine presented to the hospital with chief complaints of worsening shortness of breath than usual and increased tiredness since 2 weeks. Reported that at her baseline, she had shortness of breath due to her lung disease and since 3 months noted to have increased heart rate around 120 bpm for which she is following Dr. Alvarado and last visit is during August 2025, did echocardiogram and stress test, was supposed to follow-up with him later in the month. Reported that she is not able to do her routine daily activities and getting tired even by walking to the bathroom. Noted to have cough which is chronic per patient without any expectoration and did not note any worsening in the cough. Denies fever, recent sick contacts, nausea, vomiting, abdominal distention, pedal edema. Reported that [facility] is in August 2025 and recommended to follow-up with Dr. Alvarado in view of tachycardia at that time. Also follows with machine applicator cementer Dr. Huang in [place] and no recent change in medications. Compliant with all the medications. ED course: - Vitals at the time of admission are significant for pulse rate 130 bpm, SpO2 89% on room air - Labs at the time of admission are significant for WBC 18.4, hemoglobin 6.6, platelets 670, potassium 3. 5, magnesium 0.8 - ABG showed pH 7.34, pCO2 38, pO2 82 - Urine analysis showed 6 RBC with 2+ proteinuria - Chest x-ray done at the time of admission showed bilateral diffuse infiltrates Past medical history: Scleroderma, ILD, pulmonary hypertension, hypertension, GERD, Raynaud's disease, migraine Past surgical history: Cholecystectomy, left rotator cuff tear status postrepair, Amputation of distal left foot Social history: Stays at home with the family, denies smoking, alcohol, other illicit drug abuse. Allergies: Aspirin, codeine, penicillins, sulfa drugs. Patient is admitted in the hospital overnight for acute on chronic hypoxic respiratory failure, possibly secondary to ILD flare, and anemia 11/03/25: Overnight, transfused 1 unit pRBCs. Patient seen and assessed in the ED. Continues to endorse shortness of breath but much improved. Saturating 95% on 4L oxymask. Denies melena, blood in stool, or hemoptysis. Per chart review, was found to have non bleeding hemorrhoids and mild diverticulosis on last colonoscopy 08/2020. Exam Vital Signs Temp Pulse Resp BP Pulse Ox O2 Del Method O2 Flow Rate 97.9 F 115 H 18 120/78 97 Oxy Mask 4 11/03/25 07:28 11/03/25 09:28 11/03/25 07:28 11/03/25 09:28 11/03/25 07:28 11/03/25 07:28 11/03/25 07:28 Narrative Exam Physical Exam In ER-daughter at bedside General: Awake and in no acute distress. Conversational and non-toxic appearing. HEENT: Normocephalic, atraumatic, mucous membranes moist. Heart: Regular rate and rhythm, normal S1 and S2, no murmurs. Lungs: Bilateral dry rales Abdomen: Soft, nondistended, nontender, positive bowel sounds. No guarding or rebound tenderness. Neurologic: Alert and oriented x3, no gross neurological deficit, and patient able to move all 4 extremities. Extremities: Patient has a significant scleroderma changes in her fingers. Missing couple of fingertips Skin: No rash or ecchymoses. Objective Labs 11/05/25 05:41 11/05/25 05:41 Labs: Laboratory Results - last 24 hr 11/02/25 11/02/25 11/03/25 23:50 23:57 00:39 WBC 18.4 H RBC 3.24 L Hgb 6.6 L* Hct 23.1 L MCV 71 L MCH 20.4 L MCHC 28.6 L RDW Std Deviation 46.9 H Plt Count 670 H Neut % (Auto) 83 H Lymph % (Auto) 10 [place] % (Auto) 6 Eos % (Auto) 0 Baso % (Auto) 0 Neut # (Auto) 15.3 H Lymph # (Auto) 1.8 [place] # (Auto) 1.2 H Eos # (Auto) 0.0 Baso # (Auto) 0.1 Immature Gran # (Auto) 0.10 H Absolute Nucleated RBC 0.08 H Immature Gran % 1 H Nucleated RBC % 0 Smear Path Review Sent to Pathologist ESR Retic Count (auto) Absolute Retic Immature Retic Fraction Retic Hgb Content CHr PT 11.4 INR 1.1 APTT 30.3 D-Dimer Puncture Site ABG pH ABG pCO2 ABG pO2 ABG HCO3 ABG O2 Saturation ABG Base Excess Oxygen Liter Flow FiO2 Sodium 141 Potassium 3.5 Chloride 107 Carbon Dioxide 21.2 Anion Gap 13 BUN 18 Creatinine 1.0 Estim Creat Clear Calc 51.3 L eGFR > 60 BUN/Creatinine Ratio 18 Glucose 147 H Calculated Osmolality 286 Lactic Acid 1.2 Calcium 8.3 Corrected Calcium 8.3 L Phosphorus 2.7 Magnesium 0.8 L* Iron TIBC Iron Saturation Unsat Iron Binding Ferritin Total Bilirubin 0.4 AST 14 ALT < 7 L Alkaline Phosphatase 76 Lactate Dehydrogenase 247 H Troponin I < 0.020 C-Reactive Prot, Quant B-Natriuretic Peptide 54 Total Protein 8.4 H Albumin 4.3 Globulin 4.1 H Albumin/Globulin Ratio 1.0 L Lipase 63 H Vitamin B12 Procalcitonin 0.16 Ur Collection Type Clean Catch Urine Color Yellow Urine Clarity Clear Urine pH 6.0 Ur Specific [place] 1.022 Urine Protein 2+ A Urine Glucose (UA) Negative Urine Ketones Negative Urine Blood 1+ A Urine Nitrite Negative Urine Bilirubin Negative Urine Urobilinogen (Auto) Negative Ur Leukocyte Esterase Negative Urine RBC 6 H Urine WBC 3 Ur Squamous Epith Cells < 1 Urine Bacteria None Ur Culture Indicated? Not Indicated Influenza A (Rapid) Influenza B (Rapid) SARS-CoV-2 Ag (Rapid) Negative Blood Type Antibody Screen Crossmatch Blood Bank Wristband ID 11/03/25 11/03/25 11/03/25 00:47 00:53 06:16 WBC 15.4 H RBC 3.92 L Hgb 9.0 L D Hct 29.6 L MCV 76 L MCH 23.0 L MCHC 30.4 L RDW Std Deviation 53.8 H Plt Count 660 H Neut % (Auto) 93 H Lymph % (Auto) 6 L [place] % (Auto) 1 Eos % (Auto) 0 Baso % (Auto) 0 Neut # (Auto) 14.2 H Lymph # (Auto) 0.8 L [place] # (Auto) 0.1 Eos # (Auto) 0.0 Baso # (Auto) 0.0 Immature Gran # (Auto) 0.18 H Absolute Nucleated RBC 0.04 H Immature Gran % 1 H Nucleated RBC % 0 Smear Path Review ESR 104 H Retic Count (auto) 1.9 H Absolute Retic 75.7 H Immature Retic Fraction 18.1 H Retic Hgb Content CHr 17.8 L PT INR APTT D-Dimer 1630 H Puncture Site Right Radial ABG pH 7.34 L ABG pCO2 38 ABG pO2 82 L ABG HCO3 21 ABG O2 Saturation 97 ABG Base Excess -5 L Oxygen Liter Flow 7 FiO2 21 Sodium 142 Potassium 4.4 D Chloride 108 H Carbon Dioxide 23.0 Anion Gap 11 BUN 12 Creatinine 0.8 Estim Creat Clear Calc 64.2 eGFR > 60 BUN/Creatinine Ratio 15 Glucose 171 H Calculated Osmolality 286 Lactic Acid Calcium 8.1 L Corrected Calcium 8.1 L Phosphorus Magnesium 2.3 Iron 17 L TIBC 331 Iron Saturation 5 L Unsat Iron Binding 314 H Ferritin 51 Total Bilirubin 0.4 AST 18 ALT < 7 L Alkaline Phosphatase 76 Lactate Dehydrogenase Troponin I C-Reactive Prot, Quant > 10.0 H B-Natriuretic Peptide Total Protein 8.0 Albumin 4.2 Globulin 3.8 H Albumin/Globulin Ratio 1.1 L Lipase Vitamin B12 264 Procalcitonin Ur Collection Type Urine Color Urine Clarity Urine pH Ur Specific [place] Urine Protein Urine Glucose (UA) Urine Ketones Urine Blood Urine Nitrite Urine Bilirubin Urine Urobilinogen (Auto) Ur Leukocyte Esterase Urine RBC Urine WBC Ur Squamous Epith Cells Urine Bacteria Ur Culture Indicated? Influenza A (Rapid) Influenza B (Rapid) SARS-CoV-2 Ag (Rapid) Blood Type B Positive Antibody Screen NEGATIVE Crossmatch See Detail Blood Bank Wristband ID Yes 11/03/25 06:38 WBC RBC Hgb Hct MCV MCH MCHC RDW Std Deviation Plt Count Neut % (Auto) Lymph % (Auto) [place] % (Auto) Eos % (Auto) Baso % (Auto) Neut # (Auto) Lymph # (Auto) [place] # (Auto) Eos # (Auto) Baso # (Auto) Immature Gran # (Auto) Absolute Nucleated RBC Immature Gran % Nucleated RBC % Smear Path Review ESR Retic Count (auto) Absolute Retic Immature Retic Fraction Retic Hgb Content CHr PT INR APTT D-Dimer Puncture Site ABG pH ABG pCO2 ABG pO2 ABG HCO3 ABG O2 Saturation ABG Base Excess Oxygen Liter Flow FiO2 Sodium Potassium Chloride Carbon Dioxide Anion Gap BUN Creatinine Estim Creat Clear Calc eGFR BUN/Creatinine Ratio Glucose Calculated Osmolality Lactic Acid Calcium Corrected Calcium Phosphorus Magnesium Iron TIBC Iron Saturation Unsat Iron Binding Ferritin Total Bilirubin AST ALT Alkaline Phosphatase Lactate Dehydrogenase Troponin I C-Reactive Prot, Quant B-Natriuretic Peptide Total Protein Albumin Globulin Albumin/Globulin Ratio Lipase Vitamin B12 Procalcitonin Ur Collection Type Urine Color Urine Clarity Urine pH Ur Specific [place] Urine Protein Urine Glucose (UA) Urine Ketones Urine Blood Urine Nitrite Urine Bilirubin Urine Urobilinogen (Auto) Ur Leukocyte Esterase Urine RBC Urine WBC Ur Squamous Epith Cells Urine Bacteria Ur Culture Indicated? Influenza A (Rapid) Negative Influenza B (Rapid) Negative SARS-CoV-2 Ag (Rapid) Negative Blood Type Antibody Screen Crossmatch Blood Bank Wristband ID ABG Interpretation ABG results: 11/03/25 00:47 ABG pH 7.34 L ABG pCO2 38 ABG pO2 82 L ABG HCO3 21 ABG O2 Saturation 97 ABG Base Excess -5 L Quality Measures Quality Measures VTE prophylaxis Assessment & Plan Assessment Current Active Medications: Generic Name Dose Route Start Last Admin Trade Name Freq PRN Reason Stop Dose Admin Acetaminophen 650 mg 11/03/25 05:02 Acetaminophen 325 Mg Tablet PO 12/03/25 05:01 Q6H PRN Fever >101.5 Calcium Carbonate 600 mg 11/03/25 09:00 11/03/25 09:28 Calcium Carbonate 600 Mg Tablet PO 12/03/25 08:59 600 mg BID SWETHA Administration Enoxaparin Sodium 40 mg 11/03/25 09:00 11/03/25 09:14 Enoxaparin Sod Inj 40 Mg/0.4 Ml Syringe SC 11/17/25 08:59 40 mg QDAY SWETHA Administration Magnesium Sulfate 4 gm in 50 mls @ 12.5 mls/hr 11/03/25 06:20 11/03/25 07:23 Magnesium Sulfate Ivpb IV 11/03/25 10:19 12.5 mls/hr X1 ONE Administration Levalbuterol HCl 0.31 mg 11/03/25 05:06 Levalbuterol Rt 0.31 Mg/3 Ml Nebu INH 12/03/25 05:05 Q8HR PRN WHEEZING Lisinopril 5 mg 11/03/25 09:00 11/03/25 09:14 Lisinopril 2.5 Mg Tablet PO 12/03/25 08:59 5 mg QDAY SWETHA Administration Protocol Magnesium Oxide 400 mg 11/03/25 06:00 11/03/25 06:20 Magnesium Oxide 400 Mg Tablet PO 12/03/25 05:59 400 mg TID SWETHA Administration Metoprolol Tartrate 50 mg 11/03/25 09:00 11/03/25 09:12 Metoprolol Tartrate 25 Mg Tablet PO 12/03/25 08:59 50 mg BID SWETHA Administration Nifedipine 30 mg 11/03/25 09:00 11/03/25 09:28 Nifedipine Xl 30 Mg Tabcr PO 12/03/25 08:59 30 mg QDAY SWETHA Administration Non-Formulary Medication 48 ea 11/03/25 06:00 Non-Formulary *See Comments* 1 Ea Ea IH 12/03/25 05:59 QID SWETHA Ondansetron HCl 4 mg 11/03/25 05:02 Ondansetron Inj 2 Mg/Ml Inj 2 Ml IVP 12/03/25 05:01 Q6H PRN NAUSEA OR VOMITING Protocol Pantoprazole Sodium 40 mg 11/03/25 09:00 11/03/25 09:11 Pantoprazole 40 Mg Tablet PO 12/03/25 08:59 40 mg QDAY SWETHA Administration Patient Own Medication 48 ea 11/03/25 01:49 Patient's Own Inhaler 1 Ea Inhaler PO 11/03/25 01:50 X1 ONE Prednisone 30 mg 11/04/25 09:00 Prednisone 20 Mg Tablet PO 12/04/25 08:59 QDAY [facility] Sennosides 1 tab 11/03/25 05:02 Senna Tablet PO 12/03/25 05:01 QDAY PRN constipation Protocol Sildenafil Citrate 40 mg 11/03/25 09:00 11/03/25 09:13 Sildenafil Cit 20 Mg Tablet (Non-Formulary) PO 12/03/25 08:59 40 mg BID SWETHA Administration Plan Patient is a 55-year-old female with significant past medical history of scleroderma diagnosed almost 30 years ago, interstitial lung disease diagnosed at the same time, on oxygen 2 L since August 2025, Raynaud's disease, pulmonary hypertension, hypertension, migraine, GERD presented to the hospital with chief complaints of worsening shortness of breath than usual and increased tiredness since 2 weeks and admitted in the hospital for acute on chronic hypoxic respiratory failure and anemia. # Acute on chronic hypoxic respiratory failure # Likely secondary to ILD flare up # Underlying interstitial lung disease secondary to current tissue disorder, scleroderma - Presented to the hospital with chief complaints of gradual, progressive worsening shortness of breath than usual since 2 weeks - Reported that she is using 2 L of oxygen throughout the night and in the morning as needed since August 2025 - Reported that she is having chronic cough but reported no recent worsening or expectoration - Denies fever, recent sick contacts, nausea, vomiting, abdominal pain, headache. - On physical examination, noted to have bilateral diffuse inspiratory fine crackles Labs: - Vitals at the time of admission are significant for pulse rate 130 bpm, SpO2 89% on room air - Labs at the time of admission are significant for WBC 18.4, hemoglobin 6.6, platelets 670, potassium 3.5, magnesium 0.8 - Procalcitonin is within normal limits - ABG showed pH 7.34, pCO2 38, pO2 82 - Urine analysis showed 6 RBC with 2+ proteinuria - Chest x-ray done at the time of admission showed bilateral diffuse infiltrates - CT chest noted bronchiectasis predominantly in right lung with extensive areas of bilateral pneumonia. Blebs in right lower lung. - Influenza A&B negative Plan: - S/p 125 mg of IV Methylpred in the ED - Continue prednisone 0.5 mg/kg-30 mg, recommended to begin taper after 1 to 2 weeks, reduce by 5 mg every 7 to 10 days - S/p Lasix x1 but patient does not appear to be fluid overloaded - Antibiotics are not started as patient does not appear to have any signs of infection including fever or sputum production, Pro-Osmin is negative - Duonebs q4hr and q2hr prn - Incentive spirometry - Follow up blood cultures - Pending COVID # Anemia, microcytic hypochromic # Likely secondary to iron deficiency and with suspected superimposed blood loss - Denies hematemesis, hematochezia, melena Labs: - Hemoglobin 6.6 on admission (Baseline 10.8) - Post transfusion H&H 9.0 - MCV is 71, MCH 20.4, MCHC 28.6 - Iron panel suggests iron deficiency anemia - B12 264. Reticulocyte count elevated 1.9 Plan: - Transfused 1 unit pRBC, ordered 1 more unit - Follow up peripheral smear - Follow up stool occult blood - Consulted GI, appreciate recommendations. Plan for endoscopy/colonoscopy # Leukocytosis # Thrombocytosis - WBC 18.4, platelet 670 - Denies fever, any other associated symptoms or signs of infection - Likely reactive Plan - Continue to monitor CBC - Hold abx due to low suspicion for infection # Hypomagnesemia - Magnesium 0.8 -> 3.1 s/p 8 g magnesium sulfate Plan - Resume home magnesium # Pulmonary hypertension # Sinus tachycardia - Patient is currently using sildenafil 40 mg twice daily and Tyvaso 48 mcg 4 times inhalation - Following up with fire equipment repairer inspector in [place] and student assistance counselor, Dr. Covarrubias - Reported that patient was referred to student assistance counselor in view of tachycardia since 2 months and underwent echocardiogram - results pending, stress test is pending Plan - Resumed her home medications including sildenafil and Tyvaso - Resumed home metoprolol tartrate 50 mg twice daily # Systemic hypertension # Raynaud's disease - Blood pressures at the time of admission is within normal limits - Reported that she is taking benazepril 5 mg once daily, nifedipine 30 mg once daily Plan - Resumed her home medications # Migraine # GERD -Stable as of now Hospital Maintenance: Dispo: Tele DVT ppx: Lovenox GI ppx: Protonix Diet: NPO IV lines: Peripheral Code status: Full Patient plan of care was discussed with the attending physician, Dr. Cohen. Jennifer Alejandro DO, PGY-1 Attending Provider Attestation/Addendum Patient seen and examined with resident physician Dr. Alejandro. Note reviewed, agree with findings and recommendations. Admitted with hypoxic respiratory failure-most likely related to worsening underlying interstitial lung disease, pulmonary hypertension. Oxygen currently at 4 L. Much better with steroid and breathing treatments Patient follows up with tertiary care center. On sildenafil for pulmonary hypertension. Anemia of unclear etiology. No active GI bleed. GI was consulted. Care discussed with daughter at bedside
[2025-11-03 12:44] LABS: Cocci Serology, IgM Negative (Negative)
--- NOTE | 2025-11-03 12:44 | PC.NURSE ---
pharmacy called patient brought in her inhailer Tyvaso DPI from home ,pharmacy to verify
--- NOTE | 2025-11-03 13:29 | PC.NURSE ---
patient brought inhailer from home, took one dose at noon, medication taken by [facility] for verification, per patient and family patient regular schedule starts at 0930 in the morning, and takes next dose eery 4 hrs until her 4th dose for the day . pharmacy notified
--- NOTE | 2025-11-03 14:11 | ESCONSULT_ITS ---
HPI Data of Consult Requesting Physician: Danii Quiroz MD Admitting Provider: Danii Quiroz MD Attending Provider: Danii Quiroz MD Primary Care Provider: Juany Cohen MD Consult Narrative History of present illness: 55-year-old female with a history of scleroderma, interstitial lung disease, Raynaud's disease, pulmonary hypertension, and GERD, presents with 2 weeks of worsening shortness of breath and fatigue, admitted for acute on chronic hypoxic respiratory failure and anemia. She reports 4 days of diarrhea, which was loose but not watery, resolving yesterday. Her last colonoscopy (2019) and EGD (2017) were unremarkable. The patient has occasional NSAID use but not consistently. On arrival, her hemoglobin was 6.6, with a baseline of 10.8 (08/24); she received 1 unit of packed RBC, increasing her hemoglobin to 9.3. She denies hematochezia, hematemesis, or melena. Past medical history: As stated above. Past surgical history: Cholecystectomy, left rotator cuff tear status postrepair, Amputation of distal left foot Allergies: Aspirin, codeine, penicillins, sulfa drugs. Social history: No alcohol use, no smoking, no illicit drug use. GI consulted for evaluation of acute anemia. cc:: cc: Danii Quiroz MD Review of Systems Review of Systems Systems Reviewed: All systems reviewed, normal except as documented Exam Vital Signs Temp Pulse Resp BP Pulse Ox O2 Del Method O2 Flow Rate 98.3 F 98 20 121/68 95 Oxy Mask 4 11/03/25 11:48 11/03/25 13:53 11/03/25 13:53 11/03/25 13:53 11/03/25 13:53 11/03/25 13:53 11/03/25 13:53 Narrative Exam General: AOx3, no acute distress, able to speak full sentences HEENT: NC/AT, mucous membranes moist, bilateral sclera anicteric Cardiovascular: regular rate and rhythm, S1/S2 present, no murmurs appreciated Pulmonary: bilat rales Abdominal: soft, non-tender, non-distended, no rebound/guarding, normal bowel sounds present Musculoskeletal: normal ROM, no peripheral edema Skin: warm and dry, intact, no rashes, Neuro: CN II-XII intact, no focal deficits Results Labs 11/06/25 05:51 11/06/25 05:51 Labs: Short CBC 11/02/25 11/03/25 Range/Units 23:50 06:16 WBC 18.4 H 15.4 H (3.6-11.0) Thou/mm3 Hgb 6.6 L* 9.0 L D (12.0-16.0) g/dL Hct 23.1 L 29.6 L (36.0-46.0) % Plt Count 670 H 660 H (140-440) Thou/mm3 BMP 11/02/25 11/03/25 23:50 06:16 Sodium 141 142 Potassium 3.5 4.4 D Chloride 107 108 H Carbon Dioxide 21.2 23.0 BUN 18 12 Creatinine 1.0 0.8 Glucose 147 H 171 H Calcium 8.3 8.1 L Cardiac Enzymes 11/02/25 Range/Units 23:50 Troponin I < 0.020 (0.0-0.045) ng/mL Liver Function 11/02/25 11/03/25 Range/Units 23:50 06:16 Total Bilirubin 0.4 0.4 (0.3-1.2) mg/dL AST 14 18 (0-34) U/L ALT < 7 L < 7 L (10-49) U/L Alkaline Phosphatase 76 76 (46-116) U/L Albumin 4.3 4.2 (3.5-5.0) gm/dL Urine 11/03/25 Range/Units 00:39 Urine Color Yellow (Lt Yel-Yel) Urine Clarity Clear (Clear/Hazy) Urine pH 6.0 (5.0-7.0) Ur Specific Willard 1.022 (1.001-1.035) Urine Protein 2+ A (Neg - Trace) Urine Glucose (UA) Negative (Negative) ABG Interpretation ABG results: 11/03/25 00:47 ABG pH 7.34 L ABG pCO2 38 ABG pO2 82 L ABG HCO3 21 ABG O2 Saturation 97 ABG Base Excess -5 L Quality Measures Quality Measures VTE prophylaxis Medications Home Medications and Allergies Home Medications ?Medication ?Instructions ?Recorded ?Confirmed ?Type benazepril 20 mg tablet (Lotensin) 5 mg PO QDAY #0 tab s 03/22/15 11/03/25 History nifedipine 60 mg tablet,extended 30 mg PO QDAY #0 tabs 11/25/16 11/03/25 History release 24 hr (Procardia XL) metoprolol succinate 50 mg 50 mg PO QDAY hypertension 12/06/23 11/03/25 History tablet,extended release 24 hr sildenafil (pulm.hypertension) 20 40 mg PO BID 4 11/03/25 History mg tablet hydrocodone 10 mg-acetaminophen 10 - 325 tab PO BID [place] N Pain 10/12/24 11/03/25 History 325 mg tablet magnesium oxide 400 mg (241.3 mg 400 mg PO TID 4 11/03/25 History magnesium) tablet fexofenadine 180 mg tablet 180 mg PO Q24H allergies 11/03/25 History (Allergy Relief (fexofenadine)) omeprazole 20 mg capsule,delayed 20 mg PO DAILY 11/03/25 History release Allergies Allergy/AdvReac Type Severity Reaction Status Date / Time aspirin Allergy Severe SWELLING Verified 08/11/25 17:49 TO FACE codeine Allergy Severe RASH Verified 08/11/25 17:49 Penicillins Allergy Severe RASH,SWELL Verified 08/11/25 17:49 UP, HIVES Sulfa (Sulfonamide Allergy Diarrhea Verified 08/11/25 17:49 Antibiotics) Visit Medications Acetaminophen (Acetaminophen 325 Mg Tablet) 650 mg PO Q6H PRN PRN Reason: Fever >101.5 Stop: 12/03/25 05:01 Last Admin: 11/03/25 13:55 Dose: 650 mg Albuterol/Ipratropium (Albuterol/Ipratropium (Duoneb) Rt Tiki 3 Ml Nebu) 3 ml INH Q4HRRT SWETHA Stop: 12/03/25 14:59 Albuterol/Ipratropium (Albuterol/Ipratropium (Duoneb) Rt Tiki 3 Ml Nebu) 3 ml INH Q2HR PRN PRN Reason: SHORTNESS OF BREATH OR WHEEZE Stop: 12/03/25 12:31 Calcium Carbonate (Calcium Carbonate 600 Mg Tablet) 600 mg PO BID [facility] Stop: 12/03/25 08:59 Last Admin: 11/03/25 09:28 Dose: 600 mg Tyvaso Dpi 48mcg (Cartridge) 0 ea INH QID@0930,1330,1730,2130 [facility] Stop: 12/04/25 09:29 Tyvaso Dpi 48mcg (Cartridge) 0 ea INH Q4H [facility] Stop: 11/03/25 20:01 Enoxaparin Sodium (Enoxaparin Sod Inj 40 Mg/0.4 Ml Syringe) 40 mg SC QDAY [facility] Stop: 11/17/25 08:59 Last Admin: 11/03/25 09:14 Dose: 40 mg Lisinopril (Lisinopril 2.5 Mg Tablet) 5 mg PO QDAY [facility]; Protocol Stop: 12/03/25 08:59 Last Admin: 11/03/25 09:14 Dose: 5 mg Magnesium Oxide (Magnesium Oxide 400 Mg Tablet) 400 mg PO TID [facility] Stop: 12/03/25 05:59 Last Admin: 11/03/25 13:52 Dose: 400 mg Metoprolol Tartrate (Metoprolol Tartrate 25 Mg Tablet) 50 mg PO BID [facility] Stop: 12/03/25 08:59 Last Admin: 11/03/25 09:12 Dose: 50 mg Nifedipine (Nifedipine Xl 30 Mg Tabcr) 30 mg PO QDAY [facility] Stop: 12/03/25 08:59 Last Admin: 11/03/25 09:28 Dose: 30 mg Ondansetron HCl (Ondansetron Inj 2 Mg/Ml Inj 2 Ml) 4 mg IVP Q6H PRN; Protocol PRN Reason: NAUSEA OR VOMITING Stop: 12/03/25 05:01 Pantoprazole Sodium (Pantoprazole 40 Mg Tablet) 40 mg PO QDAY [facility] Stop: 12/03/25 08:59 Last Admin: 11/03/25 09:11 Dose: 40 mg Prednisone (Prednisone 20 Mg Tablet) 30 mg PO QDAY [facility] Stop: 12/04/25 08:59 Sennosides (Senna Tablet) 1 tab PO QDAY PRN; Protocol PRN Reason: constipation Stop: 12/03/25 05:01 Sildenafil Citrate (Sildenafil Cit 20 Mg Tablet (Non-Formulary)) 40 mg PO BID [facility] Stop: 12/03/25 08:59 Last Admin: 11/03/25 09:13 Dose: 40 mg Discontinued Medications Acetaminophen (Acetaminophen 325 Mg Tablet) 650 mg PO X1 ONE Stop: 11/02/25 23:52 Last Admin: 11/03/25 00:08 Dose: 650 mg Tyvaso Dpi 48mcg (Cartridge) 0 ea INH QID SWETHA Stop: 12/03/25 13:14 Furosemide (Furosemide Inj 10 Mg/Ml 4ml Vial) 40 mg IVP X1 ONE Stop: 11/03/25 05:38 Last Admin: 11/03/25 06:18 Dose: 40 mg Lactated Ringer's (Lactated Ringers) 1,572 mls @ 1,572 mls/hr 30 ml/kg infuse over 60 min (1572 ml) IV .Q1H ONE Stop: 11/03/25 00:29 Last Infusion: 11/03/25 01:11 Dose: Infused Levofloxacin/Dextrose (Levaquin Ivpb) 750 mg in 150 mls @ 100 mls/hr IV X1 ONE Stop: 11/03/25 00:59 Last Infusion: 11/03/25 01:23 Dose: Infused Magnesium Sulfate (Magnesium Sulfate Ivpb) 4 gm in 50 mls @ 12.5 mls/hr IV X1 ONE Stop: 11/03/25 05:15 Last Infusion: 11/03/25 05:23 Dose: Infused Magnesium Sulfate (Magnesium Sulfate Ivpb) 4 gm in 50 mls @ 12.5 mls/hr IV X1 ONE Stop: 11/03/25 10:19 Last Admin: 11/03/25 07:23 Dose: 12.5 mls/hr Levalbuterol HCl (Levalbuterol Rt 0.63 Mg/3 Ml Nebu) 0.63 mg INH X1 ONE Stop: 11/03/25 00:03 Last Admin: 11/03/25 00:11 Dose: 0.63 mg Levalbuterol HCl (Levalbuterol Rt 0.31 Mg/3 Ml Nebu) 0.31 mg INH Q8HR PRN PRN Reason: WHEEZING Stop: 12/03/25 05:05 Lisinopril (Lisinopril 2.5 Mg Tablet) 5 mg PO QDAY [facility]; Protocol Stop: 12/03/25 08:59 Methylprednisolone Sodium Succinate (Methylprednisolone Sod Succ 62.5 Mg/Ml 2ml Vial) 125 mg IVP X1 ONE Stop: 11/03/25 00:02 Last Admin: 11/03/25 00:08 Dose: 125 mg Metoprolol Succinate (Metoprolol Succinate Xl 25 Mg Tabcr) 50 mg PO QDAY [facility] Stop: 12/03/25 08:59 Nifedipine (Nifedipine Xl 30 Mg Tabcr) 60 mg PO QDAY SWETHA Stop: 12/03/25 08:59 Non-Formulary Medication (Non-Formulary *See Comments* 1 Ea Ea) 48 ea IH QID SWETHA Stop: 12/03/25 05:59 Patient Own Medication (Patient's Own Inhaler 1 Ea Inhaler) 48 ea PO X1 ONE Stop: 11/03/25 01:50 Potassium Chloride (Potassium Chloride 20 Meq Tabcr) 40 meq PO X1 ONE Stop: 11/03/25 06:21 Last Admin: 11/03/25 07:23 Dose: 40 meq Prednisone (Prednisone 20 Mg Tablet) 30 mg PO QDAY SWETHA Stop: 11/10/25 05:55 Prednisone (Prednisone 20 Mg Tablet) 20 mg PO QDAY SWETHA Stop: 12/04/25 08:59 Assessment & Plan Plan 55-year-old female with a history of scleroderma, interstitial lung disease, Raynaud's disease, pulmonary hypertension, and GERD, presents with 2 weeks of worsening shortness of breath and fatigue, admitted for acute on chronic hypoxic respiratory failure and anemia. GI consulted for evaluation of acute anemia. #Anemia, microcytic hypochromic #Likely 2/2 iron deficiency and with suspected superimposed blood loss Hemoglobin at the time of admission is 6.6 with improvement to 9.0 after blood transfusion. Last colonoscopy (2019) and EGD (2017) were unremarkable. Occasional NSAID use but not consistently. Denies hematochezia, hematemesis, or melena. Baseline hemoglobin in July 2025 was 10.8 Denies hematemesis, hematochezia, melena. Iron panel showed low iron with normal ferritin levels. Vitamin B12 level normal Plan: ? N.p.o. ? Consent obtained for EGD, to be performed today ? Continue Protonix daily Ongoing issues, managed by primary team #Acute on chronic hypoxic respiratory failure #Likely secondary to ILD flare up #Underlying interstitial lung disease secondary to current tissue disorder, scleroderma #Leukocytosis #Thrombocytosis #Hypomagnesemia #Pulmonary hypertension #Sinus tachycardia #Systemic hypertension #Raynaud's disease #Migraine #GERD Thank you for the consult. We will continue to follow the patient. Case discussed with my attending Dr. Lui Strickland MD PGY-1 Attending Provider Attestation/Addendum Patient evaluated and personally examined Laboratory data reviewed Imaging studies reviewed Patient has anemia of blood loss unexplained iron deficiency anemia Initial test of choice is fiberoptic esophagogastroduodenoscopy Consent obtained Clear liquid diet today N.p.o. at midnight tonight Procedure to be done tomorrow afternoon In case EGD is negative Will consider colonoscopy after GoLytely prep Serial CBC Transfuse if hemoglobin is below 7 g Thank you for the opportunity to participate in the care of this patient
[2025-11-03 14:18] LABS: Basophils # (Auto) 0.0 Thou/mm3 (0.0-0.2); Basophils % (Auto) 0 % (0-2.5); Eosinophils # (Auto) 0.0 Thou/mm3 (0.0-0.5); Eosinophils % (Auto) 0 % (0-10); Hematocrit 29.9 % (36.0-46.0); Hemoglobin 9.3 g/dL (12.0-16.0); Immature Granulocytes Auto 0.11 Thou/mm3 (0.00-0.00); Lymphocytes # (Auto) 1.0 Thou/mm3 (1.0-4.8); Lymphocytes % (Auto) 7 % (10-50); Mean Corpuscular HGB Conc 31.1 g/dl (31.0-37.0); Mean Corpuscular Hemoglobin 23.0 pg (25.0-35.0); Mean Corpuscular Volume 74 fL (80-100); Monocytes # (Auto) 0.2 Thou/mm3 (0.0-0.8); Monocytes % (Auto) 1 % (0-12); Neutrophils # (Auto) 13.3 Thou/mm3 (1.8-7.7); Neutrophils % (Auto) 91 % (37-80); Nucleated Red Blood Cell # 0.08 Thou/mm3 (0.00-0.00); Nucleated Red Blood Cell % 1 /100 WBC (0); Platelet Count 550 Thou/mm3 (140-440); RDW Standard Deviation 50.2 fL (36.4-46.3); Red Blood Count 4.04 Miln/mm3 (4.00-5.20); White Blood Count 14.7 Thou/mm3 (3.6-11.0)
[2025-11-03 14:37] LABS: Albumin, Serum 4.4 gm/dL (3.5-5.0); Anion Gap 11 (7-16); BUN/Creatinine Ratio 13 Ratio (12-20); Blood Urea Nitrogen 12 mg/dL (9-23); Calcium 8.8 mg/dL (8.3-10.6); Calcium (Corrected) 8.8 mg/dL (8.5-10.1); Carbon Dioxide 26.5 mMol/L (20.0-31.0); Chloride 105 mMol/L (98-107); Creatinine (Component) 0.9 mg/dL (0.6-1.3); Estimated Creatinine Clearance 57.0 mL/min (>60); Glucose 133 mg/dL (74-106); Magnesium 3.1 mg/dL (1.6-2.6); Osmolality,Calculated 284 (275-295); Phosphorous 3.7 mg/dL (2.4-5.1); Potassium 4.7 mMol/L (3.4-5.1); Sodium 142 mMol/L (136-145); eGFR > 60 See Note
[2025-11-03] MEDS: ALBUTEROL/IPRATROPIUM (Duoneb) RT SOL 3 ML NEBU INH ×3 (14:49→23:24)
--- NOTE | 2025-11-03 14:54 | PC.NURSE ---
report called to filomena
[2025-11-04] VITALS (24 sets, daily range): BP systolic 108–143; BP diastolic 48–73; PULSE 90–123; RESP 14–26; TEMP 35.9–37; O2SAT 87–100; BMI 23.3
[2025-11-04 02:06] LABS: OBS Developer Expiration Date 2027-02-28; OBS QC OK? Yes; Occult Blood, Stool Negative (Negative)
[2025-11-04] MEDS: ALBUTEROL/IPRATROPIUM (Duoneb) RT SOL 3 ML NEBU INH ×5 (02:21→22:50)
[2025-11-04] MEDS: MAGNESIUM OXIDE 400 MG TABLET PO ×2 (05:39→21:50)
[2025-11-04 07:01] LABS: Basophils # (Auto) 0.0 Thou/mm3 (0.0-0.2); Basophils % (Auto) 0 % (0-2.5); Eosinophils # (Auto) 0.0 Thou/mm3 (0.0-0.5); Eosinophils % (Auto) 0 % (0-10); Hematocrit 28.2 % (36.0-46.0); Immature Granulocytes Auto 0.14 Thou/mm3 (0.00-0.00); Lymphocytes # (Auto) 2.8 Thou/mm3 (1.0-4.8); Lymphocytes % (Auto) 13 % (10-50); Mean Corpuscular HGB Conc 29.8 g/dl (31.0-37.0); Mean Corpuscular Hemoglobin 22.3 pg (25.0-35.0); Mean Corpuscular Volume 75 fL (80-100); Monocytes # (Auto) 1.9 Thou/mm3 (0.0-0.8); Monocytes % (Auto) 9 % (0-12); Neutrophils # (Auto) 16.7 Thou/mm3 (1.8-7.7); Neutrophils % (Auto) 78 % (37-80); Nucleated Red Blood Cell # 0.11 Thou/mm3 (0.00-0.00); Nucleated Red Blood Cell % 1 /100 WBC (0); Platelet Count 695 Thou/mm3 (140-440); RDW Standard Deviation 51.7 fL (36.4-46.3); Red Blood Count 3.77 Miln/mm3 (4.00-5.20); White Blood Count 21.6 Thou/mm3 (3.6-11.0)
[2025-11-04 07:07] LABS: Hemoglobin 8.4 g/dL (12.0-16.0)
[2025-11-04 07:28] LABS: Albumin, Serum 4.1 gm/dL (3.5-5.0); Albumin/Globulin Ratio 1.1 (1.2-2.2); Alkaline Phosphatase 68 U/L (46-116); Anion Gap 11 (7-16); Aspartate Amino Transferase 16 U/L (0-34); BUN/Creatinine Ratio 23 Ratio (12-20); Bilirubin,Total 0.4 mg/dL (0.3-1.2); Blood Urea Nitrogen 21 mg/dL (9-23); Calcium 8.7 mg/dL (8.3-10.6); Calcium (Corrected) 8.7 mg/dL (8.5-10.1); Carbon Dioxide 28.1 mMol/L (20.0-31.0); Chloride 105 mMol/L (98-107); Creatinine (Component) 0.9 mg/dL (0.6-1.3); Estimated Creatinine Clearance 57.0 mL/min (>60); Globulin 3.6 gm/dL (2.3-3.5); Glucose 105 mg/dL (74-106); Magnesium 2.5 mg/dL (1.6-2.6); Osmolality,Calculated 289 (275-295); Potassium 3.9 mMol/L (3.4-5.1); Sodium 144 mMol/L (136-145); Thyroid Stimulating Hormone 0.33 uIU/mL (0.55-4.78); Total Protein 7.7 gm/dL (5.7-8.2); eGFR > 60 See Note
[2025-11-04 07:38] LABS: Alanine Aminotransferase < 7 U/L (10-49)
[2025-11-04] MEDS: NIFEdipine XL 30 MG TABCR PO (08:47)
[2025-11-04] MEDS: CALCIUM CARBONATE 600 MG TABLET PO ×2 (08:48→21:50)
[2025-11-04] MEDS: METOPROLOL TARTRATE 25 MG TABLET 50 MG PO ×2 (08:48→21:49)
[2025-11-04] MEDS: PANTOPRAZOLE 40 MG TABLET PO (08:49)
--- NOTE | 2025-11-04 11:03 | PD.NEPHPROG ---
Documentation for date of: 11/04/25 Subjective Subjective Interval history: Ms. Onofre is a 55-year-old female with significant past medical history of scleroderma diagnosed almost 30 years ago, interstitial lung disease diagnosed at the same time, on oxygen 2 L since August 2025, Raynaud's disease, pulmonary hypertension, hypertension, GERD, migraine presented to the hospital with chief complaints of worsening shortness of breath than usual and increased tiredness since 2 weeks. Reported that at her baseline, she had shortness of breath due to her lung disease and since 3 months noted to have increased heart rate around 120 bpm for which she is following Dr. Alvarado and last visit is during August 2025, did echocardiogram and stress test, was supposed to follow-up with him later in the month. Reported that she is not able to do her routine daily activities and getting tired even by walking to the bathroom. Noted to have cough which is chronic per patient without any expectoration and did not note any worsening in the cough. Denies fever, recent sick contacts, nausea, vomiting, abdominal distention, pedal edema. Reported that she is [facility] is in August 2025 and recommended to follow-up with Dr. Alvarado in view of tachycardia at that time. Also follows with employee adviser Dr. Huang in [place] and no recent change in medications. Compliant with all the medications. ED course: - Vitals at the time of admission are significant for pulse rate 130 bpm, SpO2 89% on room air - Labs at the time of admission are significant for WBC 18.4, hemoglobin 6.6, platelets 670, potassium 3. 5, magnesium 0.8 - ABG showed pH 7.34, pCO2 38, pO2 82 - Urine analysis showed 6 RBC with 2+ proteinuria - Chest x-ray done at the time of admission showed bilateral diffuse infiltrates Past medical history: Scleroderma, ILD, pulmonary hypertension, hypertension, GERD, Raynaud's disease, migraine Past surgical history: Cholecystectomy, left rotator cuff tear status postrepair, Amputation of distal left foot Social history: Stays at home with the family, denies smoking, alcohol, other illicit drug abuse. Allergies: Aspirin, codeine, penicillins, sulfa drugs. Patient is admitted in the hospital overnight for acute on chronic hypoxic respiratory failure, possibly secondary to ILD flare, and anemia 11/03/25: Overnight, transfused 1 unit pRBCs. Patient seen and assessed in the ED. Continues to endorse shortness of breath but much improved. Saturating 95% on 4L oxymask. Denies melena, blood in stool, or hemoptysis. Per chart review, was found to have non bleeding hemorrhoids and mild diverticulosis on last colonoscopy 08/2020. 11/04/2025 patient currently seen in telemetry. Going for endoscopy today. Appreciate GI evaluation. Hemoglobin seems to be stable. Platelets still elevated-needs hematology follow-up as an outpatient. CT chest showed extensive pneumonia-started her on levofloxacin. White count elevated probably related to steroids. Breathing tad better. This morning her oxygenation went up to 6 L however dropped back to 3 L and saturating between 92 and 94%. Labs and medications have been reviewed. Electrolytes were adjusted. Review of Systems Review of Systems Narrative Review of Systems: CONSTITUTIONAL: Patient denies any fever, chills. Complaining of fatigue HEENT: Denies any visual disturbances or hearing problems. CARDIOVASCULAR: Patient denies any chest pain, swelling in the lower extremities. PULMONARY: Patient c/o chronic shortness of breath, cough. GASTROINTESTINAL: Patient denies any abdominal pain, constipation, nausea, vomiting, diarrhea. GENITOURINARY: Patient denies any urinary symptoms of burning or frequency or hematuria, denies any form in the urine. SKIN: Denies any rash. MUSCULOSKELETAL: Complaining of joint pains NEUROLOGICAL: Denies any neurological problems of strokes, seizures or confusion. Denies any memory problems. Exam Vital Signs Temp Pulse Resp BP Pulse Ox O2 Del Method O2 Flow Rate 35.9 C L 95 20 121/65 94 L Oxy Mask 3 11/04/25 08:00 11/04/25 10:21 11/04/25 10:21 11/04/25 08:48 11/04/25 10:21 11/04/25 08:00 11/04/25 10:21 Narrative Exam GENERAL APPEARANCE: Patient comfortable-in telemetry NECK: Neck supple, no JVD or bruit CARDIOVASCULAR: Heart regular, no murmurs LUNGS/CHEST: Bilateral dry rales ABDOMEN: Soft, nontender, nondistended. No masses. Normal bowel sounds. EXTREMITIES: Mild clubbing noted SKIN: Scleroderma changes noted on the skin, fingers. MUSCULOSKELETAL: Scleroderma changes noted in the fingers. Left metatarsal amputation. Tip of the finger amputated on the right hand. NEUROLOGICAL : No neurological deficits Objective Labs 11/05/25 05:41 11/05/25 05:41 Labs: Laboratory Results - last 24 hr 11/03/25 11/03/25 11/04/25 07:48 14:11 00:50 WBC 14.7 H RBC 4.04 Hgb 9.3 L Hct 29.9 L MCV 74 L MCH 23.0 L MCHC 31.1 RDW Std Deviation 50.2 H Plt Count 550 H D Neut % (Auto) 91 H Lymph % (Auto) 7 L Harper % (Auto) 1 Eos % (Auto) 0 Baso % (Auto) 0 Neut # (Auto) 13.3 H Lymph # (Auto) 1.0 Harper # (Auto) 0.2 Eos # (Auto) 0.0 Baso # (Auto) 0.0 Immature Gran # (Auto) 0.11 H Absolute Nucleated RBC 0.08 H Immature Gran % 1 H Nucleated RBC % 1 H Sodium 142 Potassium 4.7 Chloride 105 Carbon Dioxide 26.5 Anion Gap 11 BUN 12 Creatinine 0.9 Estim Creat Clear Calc 57.0 L eGFR > 60 BUN/Creatinine Ratio 13 Glucose 133 H Calculated Osmolality 284 Calcium 8.8 Corrected Calcium 8.8 Phosphorus 3.7 Magnesium 3.1 H Total Bilirubin AST ALT Alkaline Phosphatase Total Protein Albumin 4.4 Globulin Albumin/Globulin Ratio TSH Stool Occult Blood Negative Coccidioides IgM Ab Negative 11/04/25 05:31 WBC 21.6 H D RBC 3.77 L Hgb 8.4 L Hct 28.2 L MCV 75 L MCH 22.3 L MCHC 29.8 L RDW Std Deviation 51.7 H Plt Count 695 H D Neut % (Auto) 78 Lymph % (Auto) 13 Harper % (Auto) 9 Eos % (Auto) 0 Baso % (Auto) 0 Neut # (Auto) 16.7 H Lymph # (Auto) 2.8 Harper # (Auto) 1.9 H Eos # (Auto) 0.0 Baso # (Auto) 0.0 Immature Gran # (Auto) 0.14 H Absolute Nucleated RBC 0.11 H Immature Gran % 1 H Nucleated RBC % 1 H Sodium 144 Potassium 3.9 D Chloride 105 Carbon Dioxide 28.1 Anion Gap 11 BUN 21 Creatinine 0.9 Estim Creat Clear Calc 57.0 L eGFR > 60 BUN/Creatinine Ratio 23 H Glucose 105 Calculated Osmolality 289 Calcium 8.7 Corrected Calcium 8.7 Phosphorus Magnesium 2.5 Total Bilirubin 0.4 AST 16 ALT < 7 L Alkaline Phosphatase 68 Total Protein 7.7 Albumin 4.1 Globulin 3.6 H Albumin/Globulin Ratio 1.1 L TSH 0.33 L Stool Occult Blood Coccidioides IgM Ab ABG Interpretation ABG results: 11/03/25 00:47 ABG pH 7.34 L ABG pCO2 38 ABG pO2 82 L ABG HCO3 21 ABG O2 Saturation 97 ABG Base Excess -5 L Assessment & Plan Additional Assessment & Plan Additional Plan: Patient is a 55-year-old female with significant past medical history of scleroderma diagnosed almost 30 years ago, interstitial lung disease diagnosed at the same time, on oxygen 2 L since August 2025, Raynaud's disease, pulmonary hypertension, hypertension, migraine, GERD presented to the hospital with chief complaints of worsening shortness of breath than usual and increased tiredness since 2 weeks and admitted in the hospital for acute on chronic hypoxic respiratory failure and anemia. # Acute on chronic hypoxic respiratory failure # Likely secondary to ILD flare up # Underlying interstitial lung disease secondary to current tissue disorder, scleroderma - Presented to the hospital with chief complaints of gradual, progressive worsening shortness of breath than usual since 2 weeks - Reported that she is using 2 L of oxygen throughout the night and in the morning as needed since August 2025 - Reported that she is having chronic cough but reported no recent worsening or expectoration - Denies fever, recent sick contacts, nausea, vomiting, abdominal pain, headache. - On physical examination, noted to have bilateral diffuse inspiratory fine crackles Labs: - Vitals at the time of admission are significant for pulse rate 130 bpm, SpO2 89% on room air - Labs at the time of admission are significant for WBC 18.4, hemoglobin 6.6, platelets 670, potassium 3.5, magnesium 0.8 - Procalcitonin is within normal limits - ABG showed pH 7.34, pCO2 38, pO2 82 - Urine analysis showed 6 RBC with 2+ proteinuria - Chest x-ray done at the time of admission showed bilateral diffuse infiltrates - CT chest noted bronchiectasis predominantly in right lung with extensive areas of bilateral pneumonia. Blebs in right lower lung. - Influenza A&B negative Plan: - S/p 125 mg of IV Methylpred in the ED - Continue prednisone 0.5 mg/kg-30 mg, recommended to begin taper after 1 to 2 weeks, reduce by 5 mg every 7 to 10 days - S/p Lasix x1 but patient does not appear to be fluid overloaded - Antibiotics are not started as patient does not appear to have any signs of infection including fever or sputum production, Pro-Osmin is negative - Duonebs q4hr and q2hr prn - Incentive spirometry - Follow up blood cultures - Pending COVID # Anemia, microcytic hypochromic # Likely secondary to iron deficiency and with suspected superimposed blood loss - Denies hematemesis, hematochezia, melena Labs: - Hemoglobin 6.6 on admission (Baseline 10.8) - Post transfusion H&H 9.0 - MCV is 71, MCH 20.4, MCHC 28.6 - Iron panel suggests iron deficiency anemia - B12 264. Reticulocyte count elevated 1.9 Plan: - Transfused 1 unit pRBC, ordered 1 more unit - Follow up peripheral smear - Follow up stool occult blood - Consulted GI, appreciate recommendations. Plan for endoscopy/colonoscopy # Leukocytosis # Thrombocytosis - WBC 18.4, platelet 670 - Denies fever, any other associated symptoms or signs of infection - Likely reactive Plan - Continue to monitor CBC - Hold abx due to low suspicion for infection # Hypomagnesemia - Magnesium 0.8 -> 3.1 s/p 8 g magnesium sulfate Plan - Resume home magnesium # Pulmonary hypertension # Sinus tachycardia - Patient is currently using sildenafil 40 mg twice daily and Tyvaso 48 mcg 4 times inhalation - Following up with window/distribution clerk in [place] and operator weapon locating radar, Dr. Covarrubias - Reported that patient was referred to operator weapon locating radar in view of tachycardia since 2 months and underwent echocardiogram - results pending, stress test is pending Plan - Resumed her home medications including sildenafil and Tyvaso - Resumed home metoprolol tartrate 50 mg twice daily # Systemic hypertension # Raynaud's disease - Blood pressures at the time of admission is within normal limits - Reported that she is taking benazepril 5 mg once daily, nifedipine 30 mg once daily Plan - Resumed her home medications # Migraine # GERD -Stable as of now Hospital Maintenance: Dispo: Tele DVT ppx: Lovenox held-SCD GI ppx: Protonix Diet: NPO IV lines: Peripheral Code status: Full
--- NOTE | 2025-11-04 11:04 | PC.SS ---
LAST WAXER conducted bedside contact with the patient conduct initial assessment and to discuss discharge planning.? Patient confirmed demographic information.? Patient resides at home with daughter, Bety Onofre .? Patient utilizes a wheelchair to assist with mobility.? Patient utilizes home oxygen.? Vendor is [employer].? Patient describes the ability to complete ADL?s independently.? Patient identified daughter, Bety Onofre; as medical surrogate decision maker.? Patient?s PCP is Dr. Cohen.? Patient?s porcelain enamel sprayer is Dr. Espinoza. Patient does not participate with dialysis.? Patient utilizes [facility] for medication services.? Plan is for the patient to return home at the time of discharge.? Family will provide transportation on behalf of the patient.? No further discharge needs identified by the patient.? No further intervention required at this time, social worker aide will be available to address any further concerns.? Next of Kin: Bety Onofre D/C Plan: Home
[2025-11-04 14:33] LABS: Cocci Serology, IgG Negative (Negative)
--- NOTE | 2025-11-04 16:30 | SUR.PHASEI ---
received pt and report from HERON Goodwin. VSS. sinus tachy however received in report that is the patients baseline. IV x2 intact, no s/s of infiltration or infection noted. Pt drowsy, however arousable to voice. Pt denies any pain
--- NOTE | 2025-11-04 16:55 | SUR.PHASEI ---
pt recovering well. vss. no s/s of discomfort. pt denies any pain. iv x2 intact, no s/s infiltration and infection.
--- NOTE | 2025-11-04 17:01 | SUR.PHASEI ---
report given to HERON Javier
[2025-11-04] MEDS: NA SU/NAHCO3/KC/PEG (Golytely) 4,000 ML BTL 4000 ML PO (18:02)
[2025-11-04] MEDS: ACETAMINOPHEN 325 MG TABLET 650 MG PO (21:56)
[2025-11-05] VITALS (29 sets, daily range): BP systolic 92–133; BP diastolic 56–86; PULSE 86–136; RESP 14–24; TEMP 36.1–37.1; O2SAT 91–99; BMI 23.1
[2025-11-05] MEDS: ALBUTEROL/IPRATROPIUM (Duoneb) RT SOL 3 ML NEBU INH ×4 (02:16→18:36)
[2025-11-05 05:53] LABS: Basophils # (Auto) 0.0 Thou/mm3 (0.0-0.2); Basophils % (Auto) 0 % (0-2.5); Eosinophils # (Auto) 0.0 Thou/mm3 (0.0-0.5); Eosinophils % (Auto) 0 % (0-10); Hematocrit 30.9 % (36.0-46.0); Hemoglobin 9.4 g/dL (12.0-16.0); Immature Granulocytes Auto 0.09 Thou/mm3 (0.00-0.00); Lymphocytes # (Auto) 2.7 Thou/mm3 (1.0-4.8); Lymphocytes % (Auto) 16 % (10-50); Mean Corpuscular HGB Conc 30.4 g/dl (31.0-37.0); Mean Corpuscular Hemoglobin 22.8 pg (25.0-35.0); Mean Corpuscular Volume 75 fL (80-100); Monocytes # (Auto) 1.0 Thou/mm3 (0.0-0.8); Monocytes % (Auto) 6 % (0-12); Neutrophils # (Auto) 12.7 Thou/mm3 (1.8-7.7); Neutrophils % (Auto) 77 % (37-80); Nucleated Red Blood Cell # 0.10 Thou/mm3 (0.00-0.00); Nucleated Red Blood Cell % 1 /100 WBC (0); Platelet Count 604 Thou/mm3 (140-440); RDW Standard Deviation 52.9 fL (36.4-46.3); Red Blood Count 4.13 Miln/mm3 (4.00-5.20); White Blood Count 16.4 Thou/mm3 (3.6-11.0)
[2025-11-05] MEDS: MAGNESIUM OXIDE 400 MG TABLET PO ×2 (06:31→21:06)
[2025-11-05 06:42] LABS: Alanine Aminotransferase < 7 U/L (10-49); Albumin, Serum 4.2 gm/dL (3.5-5.0); Albumin/Globulin Ratio 1.0 (1.2-2.2); Alkaline Phosphatase 74 U/L (46-116); Anion Gap 9 (7-16); Aspartate Amino Transferase 13 U/L (0-34); BUN/Creatinine Ratio 19 Ratio (12-20); Bilirubin,Total 0.6 mg/dL (0.3-1.2); Blood Urea Nitrogen 17 mg/dL (9-23); Calcium 9.5 mg/dL (8.3-10.6); Calcium (Corrected) 9.5 mg/dL (8.5-10.1); Carbon Dioxide 28.0 mMol/L (20.0-31.0); Chloride 103 mMol/L (98-107); Creatinine (Component) 0.9 mg/dL (0.6-1.3); Estimated Creatinine Clearance 57.0 mL/min (>60); Globulin 4.3 gm/dL (2.3-3.5); Glucose 96 mg/dL (74-106); Magnesium 1.9 mg/dL (1.6-2.6); Osmolality,Calculated 280 (275-295); Phosphorous 2.7 mg/dL (2.4-5.1); Potassium 4.4 mMol/L (3.4-5.1); Sodium 140 mMol/L (136-145); Total Protein 8.5 gm/dL (5.7-8.2); eGFR > 60 See Note
[2025-11-05] MEDS: NIFEdipine XL 30 MG TABCR PO (09:44)
[2025-11-05] MEDS: PANTOPRAZOLE 40 MG TABLET PO (09:44)
[2025-11-05] MEDS: METOPROLOL TARTRATE 25 MG TABLET 50 MG PO ×2 (09:44→19:38)
[2025-11-05] MEDS: CALCIUM CARBONATE 600 MG TABLET PO ×2 (09:44→21:06)
--- NOTE | 2025-11-05 09:50 | PD.NEPHPROG ---
Documentation for date of: 11/05/25 Subjective Subjective Interval history: Ms. Onofre is a 55-year-old female with significant past medical history of scleroderma diagnosed almost 30 years ago, interstitial lung disease diagnosed at the same time, on oxygen 2 L since August 2025, Raynaud's disease, pulmonary hypertension, hypertension, GERD, migraine presented to the hospital with chief complaints of worsening shortness of breath than usual and increased tiredness since 2 weeks. Reported that at her baseline, she had shortness of breath due to her lung disease and since 3 months noted to have increased heart rate around 120 bpm for which she is following Dr. Alvarado and last visit is during August 2025, did echocardiogram and stress test, was supposed to follow-up with him later in the month. Reported that she is not able to do her routine daily activities and getting tired even by walking to the bathroom. Noted to have cough which is chronic per patient without any expectoration and did not note any worsening in the cough. Denies fever, recent sick contacts, nausea, vomiting, abdominal distention, pedal edema. Reported that she [facility] visit is in August 2025 and recommended to follow-up with Dr. Alvarado in view of tachycardia at that time. Also follows with logistics management specialist Dr. Michelle in [place] and no recent change in medications. Compliant with all the medications. ED course: - Vitals at the time of admission are significant for pulse rate 130 bpm, SpO2 89% on room air - Labs at the time of admission are significant for WBC 18.4, hemoglobin 6.6, platelets 670, potassium 3. 5, magnesium 0.8 - ABG showed pH 7.34, pCO2 38, pO2 82 - Urine analysis showed 6 RBC with 2+ proteinuria - Chest x-ray done at the time of admission showed bilateral diffuse infiltrates Past medical history: Scleroderma, ILD, pulmonary hypertension, hypertension, GERD, Raynaud's disease, migraine Past surgical history: Cholecystectomy, left rotator cuff tear status postrepair, Amputation of distal left foot Social history: Stays at home with the family, denies smoking, alcohol, other illicit drug abuse. Allergies: Aspirin, codeine, penicillins, sulfa drugs. Patient is admitted in the hospital overnight for acute on chronic hypoxic respiratory failure, possibly secondary to ILD flare, and anemia 11/03/25: Overnight, transfused 1 unit pRBCs. Patient seen and assessed in the ED. Continues to endorse shortness of breath but much improved. Saturating 95% on 4L oxymask. Denies melena, blood in stool, or hemoptysis. Per chart review, was found to have non bleeding hemorrhoids and mild diverticulosis on last colonoscopy 08/2020. 11/04/2025 patient currently seen in telemetry. Going for endoscopy today. Appreciate GI evaluation. Hemoglobin seems to be stable. Platelets still elevated-needs hematology follow-up as an outpatient. CT chest showed extensive pneumonia-started her on levofloxacin. White count elevated probably related to steroids. Breathing tad better. This morning her oxygenation went up to 6 L however dropped back to 3 L and saturating between 92 and 94%. Labs and medications have been reviewed. Electrolytes were adjusted. 11/05/2025 patient still having some shortness of breath. Had endoscopy and today going for colonoscopy. Denies any chest pain. No nausea, vomiting. Currently on 3.5 L oxygen. Patient on home oxygen for interstitial lung disease. Labs and medications reviewed Review of Systems Review of Systems Narrative Review of Systems: CONSTITUTIONAL: Patient denies any fever, chills. Complaining of fatigue HEENT: Denies any visual disturbances or hearing problems. CARDIOVASCULAR: Patient denies any chest pain, swelling in the lower extremities. PULMONARY: Patient c/o chronic shortness of breath, cough. GASTROINTESTINAL: Patient denies any abdominal pain, constipation, nausea, vomiting, diarrhea. GENITOURINARY: Patient denies any urinary symptoms of burning or frequency or hematuria, denies any form in the urine. SKIN: Denies any rash. MUSCULOSKELETAL: Complaining of joint pains NEUROLOGICAL: Denies any neurological problems of strokes, seizures or confusion. Denies any memory problems. Exam Vital Signs Temp Pulse Resp BP Pulse Ox O2 Del Method O2 Flow Rate 36.1 C 90 18 129/72 99 Oxy Mask 4 11/05/25 08:00 11/05/25 09:45 11/05/25 09:34 11/05/25 09:45 11/05/25 09:34 11/05/25 08:00 11/05/25 09:34 Narrative Exam GENERAL APPEARANCE: Patient comfortable-in telemetry NECK: Neck supple, no JVD or bruit CARDIOVASCULAR: Heart regular, no murmurs LUNGS/CHEST: Bilateral dry rales ABDOMEN: Soft, nontender, nondistended. No masses. Normal bowel sounds. EXTREMITIES: Mild clubbing noted SKIN: Scleroderma changes noted on the skin, fingers. MUSCULOSKELETAL: Scleroderma changes noted in the fingers. Left metatarsal amputation. Tip of the finger amputated on the right hand. NEUROLOGICAL : No neurological deficits Objective Labs 11/05/25 05:41 11/05/25 05:41 Labs: Laboratory Results - last 24 hr 11/03/25 11/05/25 07:48 05:41 WBC 16.4 H D RBC 4.13 Hgb 9.4 L Hct 30.9 L MCV 75 L MCH 22.8 L MCHC 30.4 L RDW Std Deviation 52.9 H Plt Count 604 H D Neut % (Auto) 77 Lymph % (Auto) 16 [place] % (Auto) 6 Eos % (Auto) 0 Baso % (Auto) 0 Neut # (Auto) 12.7 H Lymph # (Auto) 2.7 [place] # (Auto) 1.0 H Eos # (Auto) 0.0 Baso # (Auto) 0.0 Immature Gran # (Auto) 0.09 H Absolute Nucleated RBC 0.10 H Immature Gran % 1 H Nucleated RBC % 1 H Sodium 140 Potassium 4.4 D Chloride 103 Carbon Dioxide 28.0 Anion Gap 9 BUN 17 Creatinine 0.9 Estim Creat Clear Calc 57.0 L eGFR > 60 BUN/Creatinine Ratio 19 Glucose 96 Calculated Osmolality 280 Calcium 9.5 Corrected Calcium 9.5 Phosphorus 2.7 Magnesium 1.9 Total Bilirubin 0.6 AST 13 ALT < 7 L Alkaline Phosphatase 74 Total Protein 8.5 H Albumin 4.2 Globulin 4.3 H Albumin/Globulin Ratio 1.0 L Coccidioides IgG Ab Negative ABG Interpretation ABG results: 11/03/25 00:47 ABG pH 7.34 L ABG pCO2 38 ABG pO2 82 L ABG HCO3 21 ABG O2 Saturation 97 ABG Base Excess -5 L Assessment & Plan Additional Assessment & Plan Additional Plan: Patient is a 55-year-old female with significant past medical history of scleroderma diagnosed almost 30 years ago, interstitial lung disease diagnosed at the same time, on oxygen 2 L since August 2025, Raynaud's disease, pulmonary hypertension, hypertension, migraine, GERD presented to the hospital with chief complaints of worsening shortness of breath than usual and increased tiredness since 2 weeks and admitted in the hospital for acute on chronic hypoxic respiratory failure and anemia. # Acute on chronic hypoxic respiratory failure # Likely secondary to ILD flare up # Underlying interstitial lung disease secondary to current tissue disorder, scleroderma - Presented to the hospital with chief complaints of gradual, progressive worsening shortness of breath than usual since 2 weeks - Reported that she is using 2 L of oxygen throughout the night and in the morning as needed since August 2025 - Reported that she is having chronic cough but reported no recent worsening or expectoration - Denies fever, recent sick contacts, nausea, vomiting, abdominal pain, headache. - On physical examination, noted to have bilateral diffuse inspiratory fine crackles Labs: - Vitals at the time of admission are significant for pulse rate 130 bpm, SpO2 89% on room air - Labs at the time of admission are significant for WBC 18.4, hemoglobin 6.6, platelets 670, potassium 3.5, magnesium 0.8 - Procalcitonin is within normal limits - ABG showed pH 7.34, pCO2 38, pO2 82 - Urine analysis showed 6 RBC with 2+ proteinuria - Chest x-ray done at the time of admission showed bilateral diffuse infiltrates - CT chest noted bronchiectasis predominantly in right lung with extensive areas of bilateral pneumonia. Blebs in right lower lung. - Influenza A&B negative Plan: - S/p 125 mg of IV Methylpred in the ED - Continue prednisone - S/p Lasix x1 but patient does not appear to be fluid overloaded - dc Antibiotics - Duonebs q4hr and q2hr prn - Incentive spirometry -negative blood cultures - negative cocci, COVID # Anemia, microcytic hypochromic # Likely secondary to iron deficiency and with suspected superimposed blood loss - Denies hematemesis, hematochezia, melena Labs: - Hemoglobin 6.6 on admission (Baseline 10.8) - Post transfusion H&H 9.0 - MCV is 71, MCH 20.4, MCHC 28.6 - Iron panel suggests iron deficiency anemia - B12 264. Reticulocyte count elevated 1.9 Plan: - Transfused 1 unit pRBC, ordered 1 more unit - Follow up peripheral smear - Follow up stool occult blood - Consulted GI, appreciate recommendations. Plan for endoscopy/colonoscopy # Leukocytosis # Thrombocytosis - WBC 18.4, platelet 670 - Denies fever, any other associated symptoms or signs of infection - Likely reactive Plan - Continue to monitor CBC - Hold abx due to low suspicion for infection # Hypomagnesemia - Magnesium 0.8 -> 3.1 s/p 8 g magnesium sulfate Plan - Resume home magnesium # Pulmonary hypertension # Sinus tachycardia - Patient is currently using sildenafil 40 mg twice daily and Tyvaso 48 mcg 4 times inhalation - Following up with after school program coordinator in [place] and printing shop supervisor, Dr. Covarrubias - Reported that patient was referred to printing shop supervisor in view of tachycardia since 2 months and underwent echocardiogram - results pending, stress test is pending Plan - Resumed her home medications including sildenafil and Tyvaso - Resumed home metoprolol tartrate 50 mg twice daily # Systemic hypertension # Raynaud's disease - Blood pressures at the time of admission is within normal limits - Reported that she is taking benazepril 5 mg once daily, nifedipine 30 mg once daily Plan - Resumed her home medications # Migraine # GERD -Stable as of now Hospital Maintenance: Dispo: Tele DVT ppx: Lovenox held-SCD GI ppx: Protonix Diet: NPO IV lines: Peripheral Code status: Full
--- NOTE | 2025-11-05 15:53 | SUR.PHASEI ---
1553: Pt. AAOx4, vitals stable, breathing unlabored, no complaint of pain or nausea, no dressing in place, no active bleed noted, report received from Ivon SHELBY.
--- NOTE | 2025-11-05 16:25 | SUR.PHASEI ---
1625: Pt. AAOx4, vitals stable, breathing unlabored, no complaint of pain or nausea, no dressing in place, no active bleed noted, Pt. tolerated bites of ice chips well, gave report to Krysten SHELBY prior to transfer to room 260.
[2025-11-06] VITALS (10 sets, daily range): BP systolic 111–125; BP diastolic 54–66; PULSE 78–115; RESP 14–26; TEMP 36.1–36.5; O2SAT 96–99; BMI 23.7
[2025-11-06] MEDS: ALBUTEROL/IPRATROPIUM (Duoneb) RT SOL 3 ML NEBU INH ×3 (03:00→10:43)
[2025-11-06] MEDS: MAGNESIUM OXIDE 400 MG TABLET PO (05:10)
[2025-11-06 06:32] LABS: Basophils # (Auto) 0.0 Thou/mm3 (0.0-0.2); Basophils % (Auto) 0 % (0-2.5); Eosinophils # (Auto) 0.0 Thou/mm3 (0.0-0.5); Eosinophils % (Auto) 0 % (0-10); Hematocrit 28.6 % (36.0-46.0); Immature Granulocytes Auto 0.05 Thou/mm3 (0.00-0.00); Lymphocytes # (Auto) 3.5 Thou/mm3 (1.0-4.8); Lymphocytes % (Auto) 24 % (10-50); Mean Corpuscular HGB Conc 30.1 g/dl (31.0-37.0); Mean Corpuscular Hemoglobin 22.8 pg (25.0-35.0); Mean Corpuscular Volume 76 fL (80-100); Monocytes # (Auto) 0.9 Thou/mm3 (0.0-0.8); Monocytes % (Auto) 7 % (0-12); Neutrophils # (Auto) 9.8 Thou/mm3 (1.8-7.7); Neutrophils % (Auto) 69 % (37-80); Nucleated Red Blood Cell # 0.06 Thou/mm3 (0.00-0.00); Nucleated Red Blood Cell % 0 /100 WBC (0); Platelet Count 619 Thou/mm3 (140-440); RDW Standard Deviation 56.6 fL (36.4-46.3); Red Blood Count 3.77 Miln/mm3 (4.00-5.20); White Blood Count 14.3 Thou/mm3 (3.6-11.0)
[2025-11-06 06:57] LABS: Alanine Aminotransferase < 7 U/L (10-49); Albumin, Serum 4.0 gm/dL (3.5-5.0); Albumin/Globulin Ratio 1.1 (1.2-2.2); Alkaline Phosphatase 74 U/L (46-116); Anion Gap 10 (7-16); Aspartate Amino Transferase 12 U/L (0-34); BUN/Creatinine Ratio 26 Ratio (12-20); Bilirubin,Total 0.4 mg/dL (0.3-1.2); Blood Urea Nitrogen 18 mg/dL (9-23); Calcium 9.1 mg/dL (8.3-10.6); Calcium (Corrected) 9.1 mg/dL (8.5-10.1); Carbon Dioxide 28.7 mMol/L (20.0-31.0); Chloride 103 mMol/L (98-107); Creatinine (Component) 0.7 mg/dL (0.6-1.3); Estimated Creatinine Clearance 73.3 mL/min (>60); Globulin 3.7 gm/dL (2.3-3.5); Glucose 84 mg/dL (74-106); Magnesium 1.6 mg/dL (1.6-2.6); Osmolality,Calculated 284 (275-295); Phosphorous 3.3 mg/dL (2.4-5.1); Potassium 4.2 mMol/L (3.4-5.1); Sodium 142 mMol/L (136-145); Total Protein 7.7 gm/dL (5.7-8.2); eGFR > 60 See Note
[2025-11-06 07:12] LABS: Hemoglobin 8.6 g/dL (12.0-16.0)
[2025-11-06] MEDS: CALCIUM CARBONATE 600 MG TABLET PO (08:12)
[2025-11-06] MEDS: NIFEdipine XL 30 MG TABCR PO (08:12)
[2025-11-06] MEDS: PANTOPRAZOLE 40 MG TABLET PO (08:13)
[2025-11-06] MEDS: METOPROLOL TARTRATE 25 MG TABLET 50 MG PO (08:13)
--- NOTE | 2025-11-06 08:34 | PD.RESDS ---
Planned Discharge Date 11/06/25 DS: Providers Provider Date of admission: 11/03/25 05:02 Primary care physician: Juany Cohen MD Admitting Provider: Danii Quiroz MD Attending Provider on Admission: Danii Quiroz MD Consults: 11/03/25 12:34 Consult to Gastroenterology Routine Comment: anemia, concern for GI bleed Consulting Provider: Angela Poe Attending Provider on DC: Juany Cohen MD Discharging Provider: Jennifer Alejandro DO DS: Diagnosis Problem List Completed Was Problem List Reviewed/Reconciled?: Yes Hospital Course Hospital Course Hospital course: Reason for hospitalization: Ms Onofre is a 55-year-old female with a history of scleroderma, interstitial lung disease, Raynaud's disease, pulmonary hypertension, and GERD was admitted 11/02 for acute on chronic hypoxic respiratory failure and acute anemia requiring 1 unit blood transfusion. Was also started on prednisone 30 mg daily and Duonebs for respiratory failure likely secondary to ILD flare. CT chest noted bronchiectasis predominantly in right lung with extensive areas of bilateral pneumonia. Tested negative for cocci, COVID, and influenza A&B. Blood cultures negative. Leukocytosis improved without antibiotics, suspect likely reactive. GI work up was negative for acute GI bleed (endoscopy negative and colonoscopy only showed mild diverticulitis with nonbleeding internal hemorrhoids). Hemoglobin stable after transfusion. Of note, patient tested low from iron but also given history of autoimmune diseases and thrombocytosis, recommended patient see armature winder repair helper for possible aplastic or hemolytic causes. Recommended patient follow up with her it security analyst and PCP within 1-2 weeks of discharge. Patient was medically stable upon discharge, saturating 3L comfortably. New medications and further instructions below. Discharge Recommendations: - Start prednisone 20 mg daily for 7 days, followed by half tablet for another 5 days - Start iron tablets daily for low iron - Restart calcium carbonate 600 mg BID - Continue all other home medications including magnesium - Follow up outpatient with Dr. Cohen in 1-2 weeks after discharge with labs - Return immediately to ER if you develop worsening shortness of breath, significantly increased oxygen requirements, or other concerning symptoms. Hospital Diagnoses: # Acute on chronic hypoxic respiratory failure # Likely secondary to ILD flare up # Underlying interstitial lung disease secondary to current tissue disorder, scleroderma # Anemia, microcytic hypochromic # Likely secondary to iron deficiency and with suspected superimposed blood loss # Leukocytosis # Thrombocytosis # Hypomagnesemia # Pulmonary hypertension # Sinus tachycardia # Systemic hypertension # Raynaud's disease # Migraine # GERD Patient plan of care was discussed with the attending physician, Dr. Vicki Alejandro DO, PGY-1 Status at Discharge Cognitive/behavioral status at discharge: Stable Functional status at discharge: independent ambulation Overall status at discharge: patient is progressing back to baseline Time Spent with Patient Time attestation: Total time spent providing and/or coordinating discharge services: Time spent: Greater than 30 minutes Exam Vital Signs Temp Pulse Resp BP Pulse Ox O2 Del Method O2 Flow Rate 97.2 F 100 16 124/60 99 Oxy Mask 2.5 11/06/25 08:00 11/06/25 08:13 11/06/25 08:00 11/06/25 08:13 11/06/25 08:00 11/06/25 08:00 11/06/25 08:00 Narrative Exam GENERAL APPEARANCE: Patient comfortable-in telemetry, saturating comfortably on 3L NECK: Neck supple, no JVD or bruit CARDIOVASCULAR: Heart regular, no murmurs LUNGS/CHEST: Bilateral dry rales ABDOMEN: Soft, nontender, nondistended. No masses. Normal bowel sounds. EXTREMITIES: Mild clubbing noted SKIN: Scleroderma changes noted on the skin, fingers. MUSCULOSKELETAL: Scleroderma changes noted in the fingers. Left metatarsal amputation. Tip of the finger amputated on the right hand. NEUROLOGICAL : No neurological deficits Discharge Plan Plan Patient Disposition: HOME (Self Care) Patient condition on transfer: Stable Care Plan Goals: Discharge instructions: - Start prednisone 20 mg daily for 7 days, followed by half tablet for another 5 days - Start iron tablets daily for low iron - Restart calcium carbonate 600 mg BID - Continue all other home medications including magnesium - Follow up outpatient with Dr. Cohen in 1-2 weeks after discharge with labs - Return immediately to ER if you develop worsening shortness of breath, significantly increased oxygen requirements, or other concerning symptoms. Prescriptions/Referrals Prescriptions/Med Rec: New prednisone 20 mg Tablet 30 mg PO QDAY Qty: 14 0RF calcium carbonate 600 mg calcium (1,500 mg) Tablet 600 mg PO BID Qty: 30 0RF ferrous sulfate [Iron (ferrous sulfate)] 325 mg (65 mg iron) tablet 325 mg PO QDAY Qty: 30 0RF Continued benazepril [Lotensin] 20 MG tablet 5 mg PO QDAY Qty: 0 nifedipine [Procardia XL] 60 MG/BOTTLE tablet extended release 24 hr 30 mg PO QDAY Qty: 0 metoprolol succinate 50 mg tablet extended release 24 hr 50 mg PO QDAY Patient Comments: TAKE 1 TABLET BY MOUTH TWICE A DAY sildenafil (pulm.hypertension) 20 mg tablet 40 mg PO BID hydrocodone-acetaminophen 10-325 mg tablet 10 - 325 tab PO BID PRN (Reason: Pain) Patient Comments: TAKE 1 TABLET BY MOUTH TWICE A DAY NEEDED FOR PAIN magnesium oxide 400 mg (241.3 mg magnesium) tablet 400 mg PO TID Patient Comments: TAKE 1 TABLET BY MOUTH THREE TIMES A DAY fexofenadine [Allergy Relief (fexofenadine)] 180 mg tablet 180 mg PO Q24H Patient Comments: TAKE 1 TABLET BY MOUTH EVERY DAY omeprazole 20 mg capsule,delayed release(DR/EC) 20 mg PO DAILY Patient Comments: TAKE 1 CAPSULE BY MOUTH EVERY DAY 30 MINUTES TO 1 HOUR BEFORE A MEAL Discontinued cetirizine 10 mg tablet 10 mg PO QDAY Patient Comments: TAKE 1 TABLET BY MOUTH EVERY DAY Referrals: Juany Cohen MD [Primary Care Provider, Nephrology] Outpatient Orders (i.e. Home Health, Labs, Imaging): Renal Function Panel (Routine) Timeframe: 1 Week Location: None Selected Ordered By: Jennifer Alejandro Patient/Caregiver Discharge Instructions Discharge Activity: activity as tolerated, resume usual activities and wear oxygen at night Education Materials: Anemia Print Language: Scottish Activity Restrictions/Additional Instructions: f/u with dr. cohen in 1week prednisone 20mg po qd- 7 days prednisone 10mg po qd-7 days, stop Stand Alone Forms: [place] Award Info., Patient Portal Info Letter Discharge Order Discharge Orders: Discharge (Routine); Ordered 11/06/25 Ordered By: Juany Cohen Quality Discharge Quality Measures VTE prophylaxis MD Attestestation MD Attestation Patient seen and examined with resident physician Dr. Alejandro. Note reviewed, agree with findings and recommendations. Admitted with hypoxic respiratory failure-most likely related to worsening underlying interstitial lung disease, pulmonary hypertension. Oxygen currently at 3 L. Much better with steroid and breathing treatments Patient follows up with tertiary care center. On sildenafil for pulmonary hypertension. Anemia of unclear etiology. No active GI bleed. GI was consulted. Endoscopy and colonoscopy did not show any active bleed. Electrolytes, LFTs, creatinine normal. Patient will be discharged home today On home oxygen. Taper steroid dose. No need for antibiotics. Cultures negative.
--- NOTE | 2025-11-06 11:13 | PC.NURSE ---
CALLED DR. ARAUZ REGARDING PRESCRIPTION TO HAVE THEM TRANSMITTED TO PATIENT PHARMACY [facility] [address], PER DR. HERNANDEZ SHE WILL SEND IT OVER. INFORMED PATIENT THAT IF NOT READY BY TOMORROW TO GIVE DR. ARAUZ'S OFFICE A CALL TO FOLLOW UP.
--- NOTE | 2025-11-06 21:49 | PD.IMPROG ---
Documentation for date of: 11/06/25 Subjective Subjective Interval history: Late entry for the note hemoglobin hematocrit 8.6 and 28.6 No further evidence of any active bleeding Exam Vital Signs Temp Pulse Resp BP Pulse Ox O2 Del Method O2 Flow Rate 97.5 F 115 H 26 H 125/66 97 Nasal Cannula 2.5 11/06/25 12:28 11/06/25 12:28 11/06/25 12:28 11/06/25 12:28 11/06/25 12:28 11/06/25 12:28 11/06/25 12:28 Objective Labs 11/06/25 05:51 11/06/25 05:51 Labs: Laboratory Results - last 24 hr 11/06/25 05:51 WBC 14.3 H RBC 3.77 L Hgb 8.6 L Hct 28.6 L MCV 76 L MCH 22.8 L MCHC 30.1 L RDW Std Deviation 56.6 H Plt Count 619 H Neut % (Auto) 69 Lymph % (Auto) 24 [place] % (Auto) 7 Eos % (Auto) 0 Baso % (Auto) 0 Neut # (Auto) 9.8 H Lymph # (Auto) 3.5 [place] # (Auto) 0.9 H Eos # (Auto) 0.0 Baso # (Auto) 0.0 Immature Gran # (Auto) 0.05 H Absolute Nucleated RBC 0.06 H Immature Gran % 0 Nucleated RBC % 0 Sodium 142 Potassium 4.2 Chloride 103 Carbon Dioxide 28.7 Anion Gap 10 BUN 18 Creatinine 0.7 Estim Creat Clear Calc 73.3 eGFR > 60 BUN/Creatinine Ratio 26 H Glucose 84 Calculated Osmolality 284 Calcium 9.1 Corrected Calcium 9.1 Phosphorus 3.3 Magnesium 1.6 Total Bilirubin 0.4 AST 12 ALT < 7 L Alkaline Phosphatase 74 Total Protein 7.7 Albumin 4.0 Globulin 3.7 H Albumin/Globulin Ratio 1.1 L Impressions Impression: Gastritis Esophagitis Internal hemorrhoids Okay to discharge patient home Follow-up as an outpatient if the patient continues to drop hemoglobin hematocrit recommend capsule and ABG Interpretation ABG results: 11/03/25 00:47 ABG pH 7.34 L ABG pCO2 38 ABG pO2 82 L ABG HCO3 21 ABG O2 Saturation 97 ABG Base Excess -5 L Assessment & Plan Time Spent With Patient Time: Total time spent is greater than 50% in coordination of care (as documented) at patient's floor/unit and/or counseling patient:
--- NOTE | 2025-11-07 15:55 | PC.NURSE ---
TODAY THE PATIENT CALLED BACK AND STATED SHE DID NOT GET PREDNISONE PRESCRIPTION, INFORMED HER YESTERDAY THAT DR. ARAUZ WAS GOING TO SEND THE PRESCRIPTION FROM HER OFFICE. CALLED DR. ARAUZ BACK, STATED SHE WILL TAKE CARE OF IT, AND GET IT SENT. NOTIFIED THE PATIENT TO FOLLOW UP AND IF SHE DOES NOT HEAR ANYTHING FROM THE DOCTOR OFFICE, TO CALL AGAIN TOMORROW AND HAVE HER DAUGHTER STOP BY HER OFFICE. DR HERNANDEZ ALSO STATED THAT THE IRON AND CALCIUM CARBONATE, THE PATIENT CAN GET OVER THE COUNTER, WHICH THE PATIENT WAS INFORMED.
== END 2025-11-06 12:20 | disposition home or self-care (01) | DRG 196 ==
LOC: SERX 11-03 05:07 → SERHOLD 11-03 06:00 → S2NX 11-03 15:25
PROVIDERS: Family Medicine; Specialist; Admitting Provider Student in an Organized Health Care Education/Training Program; PCP Internal Medicine; Visit Provider Student in an Organized Health Care Education/Training Program
PROC: (CPT 43239; principal; 2025-11-04 14:45)
PROC: 0DJD8ZZ Inspection of Lower Intestinal Tract, Via Natural or Artificial Opening Endoscopic (ICD-10-PCS; CPT 45378; principal; 2025-11-05 15:00)
DX: J84.9 Interstitial pulmonary disease, unspecified (principal); J96.21 Acute and chronic respiratory failure with hypoxia; J47.0 Bronchiectasis with acute lower respiratory infection; K21.9 Gastro-esophageal reflux disease without esophagitis; I10 Essential (primary) hypertension; I27.21 Secondary pulmonary arterial hypertension; D75.839 Thrombocytosis, unspecified; D50.9 Iron deficiency anemia, unspecified; R00.0 Tachycardia, unspecified; K21.00 Gastro-esophageal reflux disease with esophagitis, without bleeding; J84.10 Pulmonary fibrosis, unspecified; E83.42 Hypomagnesemia; G43.909 Migraine, unspecified, not intractable, without status migrainosus; K29.70 Gastritis, unspecified, without bleeding; K64.8 Other hemorrhoids; Z88.6 Allergy status to analgesic agent; Z88.5 Allergy status to narcotic agent; Z88.2 Allergy status to sulfonamides; Z88.0 Allergy status to penicillin; Z77.120 Contact with and (suspected) exposure to mold (toxic); Z79.899 Other long term (current) drug therapy
CPT/HCPCS: 36415; 36430; 36600; 51701; 71045; 71250; 74018; 80053; 80069; 81001; 82270; 82607; 82728; 82803; 83540; 83550; 83605; 83615; 83690; 83735; 83880; 84100; 84145; 84443; 84484; 85025; 85046; 85379; 85610; 85652; 85730; 86140; 86331; 86635; 86850; 86900; 86901; 86923; 87040; 87502; 87811; 93005; 93306; 94640; 96365; 96366; 99291; 99292; A4649; A9270; J1200; J1650; J1938; J1956; J2250; J2919; J3010; J3475; J7120; J7512; P9016